=== PATIENT | male | born 1975 | race Caucasian/White ===

== ENCOUNTER 2016-07-25 21:25 | Emergency (ER) | payer MEDICAID ==
[2016-07-25 21:31] VITALS: O2SAT 96
[2016-07-25] MEDS ORDERED: FAMOTIDINE 20 MG/NACL 50 ML IV ONE (21:43)
[2016-07-25] MEDS ORDERED: NS 1,000 ML IV ONE (21:43)
[2016-07-25] MEDS ORDERED: ONDANSETRON 4 MG/2 ML VIAL IVP ONE (21:43)
[2016-07-25] MEDS ORDERED: HYDROmorphONE/DILAUDID 1 MG/ML SYR IVP ONE (21:43)
[2016-07-25] MEDS ORDERED: ONDANSETRON 4 MG/2 ML VIAL ONE (21:44)
[2016-07-25] MEDS ORDERED: FAMOTIDINE 20 MG/2 ML SDV ONE (21:45)
[2016-07-25 21:55] LABS: % IMMATURE GRANULYOCYTES 0.3 % (0.0-1.1); ABSOLUTE IMMATURE GRANULOCYTES 0.03 10^3/uL (0.00-0.10); ADD DIFF? NO; ADD MORPH? NO; ADD SCAN? NO; ATYPICAL LYMPHOCYTE FLAG 70 (0-99); FRAGMENT RBC FLAG 0 (0-99); HEMATOCRIT 46.6 % (40.0-51.0); HEMOGLOBIN 16.4 g/dL (13.7-17.5); LEFT SHIFT FLG 0 (0-99); LIPEMIA HEMOLYSIS FLAG 90 (0-99); MEAN CELL HEMOGLOBIN 33.5 pg (27.9-34.1); MEAN CELL HEMOGLOBIN CONCENTR. 35.2 g/dL (32.4-36.7); MEAN CELL VOLUME 95.1 fL (81.5-99.8); MEAN PLATELET VOLUME 8.7 fL (8.7-11.7); PLATELET CLUMPS FLAG 0 (0-99); PLATELET COUNT 299 10^3/uL (150-400)
--- NOTE | 2016-07-25 21:56 | EDPHY ---
H & P Stated Complaint: vomiting blood, abd pain Time Seen by Provider: 07/25/16 21:35 HPI/ROS: CHIEF COMPLAINT: Vomiting HISTORY OF PRESENT ILLNESS: The patient is a 40-year-old alcoholic male who comes to the emergency department complaining of vomiting with blood-tinged vomit. He has a history of alcoholic gastritis. He states that he has been drinking up until 20 minutes ago. He has not had any blood in his stool. He does have abdominal pain diffuse and nontender. No history of abdominal surgeries. No history of pancreatitis. REVIEW OF SYSTEMS: Constitutional: denies: chills, fever, recent illness, recent injury EENTM: denies: blurred vision, double vision, nose congestion Respiratory: denies: cough, shortness of breath Cardiac: denies: chest pain, irregular heart rate, lightheadedness, palpitations Gastrointestinal/Abdominal: See HPI Genitourinary: denies: dysuria, frequency, hematuria, pain Musculoskeletal: denies: joint pain, muscle pain Skin: denies: lesions, rash, jaundice, bruising Neurological: denies: headache, numbness, paresthesia, tingling, dizziness, weakness Hematologic/Lymphatic: denies: blood clots, easy bleeding, easy bruising Immunologic/allergic: denies: HIV/AIDS, transplant EXAM: GENERAL: Well-appearing, well-nourished and in no acute distress. HEAD: Atraumatic, normocephalic. EYES: Pupils equal round and reactive to light, extraocular movements intact, sclera anicteric, conjunctiva are normal. ENT: TMs normal, nares patent, oropharynx clear without exudates. Moist mucous membranes. NECK: Normal range of motion, supple without lymphadenopathy or JVD. LUNGS: Breath sounds clear to auscultation bilaterally and equal. No wheezes rales or rhonchi. HEART: Regular rate and rhythm without murmurs, rubs or gallops. ABDOMEN: The diffuse pain, no tenderness, BACK: No CVA tenderness, no spinal tenderness, step-offs or deformities EXTREMITIES: Normal range of motion, no pitting or edema. No clubbing or cyanosis. NEUROLOGICAL: Cranial nerves II through XII grossly intact. Normal speech, normal gait. 5/5 strength, normal movement in all extremities, normal sensation PSYCH: Normal mood, normal affect. SKIN: Warm, dry, normal turgor, no visible rashes or lesions. Source: Patient Exam Limitations: No limitations - Medical/Surgical History Hx Asthma: No Hx Chronic Respiratory Disease: No Hx Diabetes: No Hx Cardiac Disease: No Hx Renal Disease: No Hx Cirrhosis: No Hx Alcoholism: Yes Hx HIV/AIDS: No Hx Splenectomy or Spleen Trauma: No Other PMH: etoh/gi bleed - Family History Significant Family History: No pertinent family hx - Social History Smoking Status: Heavy smoker Alcohol Use: Heavy Drug Use: Marijuana Constitutional: Initial Vital Signs Temperature (C) 36.4 C 07/25/16 21:29 Heart Rate 106 H 07/25/16 21:29 Respiratory Rate 20 07/25/16 21: Blood Pressure 132/92 H 07/25/16 21: O2 Sat (%) 96 07/25/16 21: O2 Delivery Mode Room Air Allergies/Adverse Reactions: No Known Allergies Allergy (Verified 07/25/16 21:28) Home Medications: Medication Instructions Recorded Famotidine [Pepcid 20 MG (*)] 20 mg PO BID #10 tab 06/23/16 Vivitrol 06/23/16 Medical Decision Making ED Course/Re-evaluation: 10:30 p.m. the patient is feeling much better. He has not vomited again. He is requesting more nausea medication. I will treat him with Phenergan. He is asking to go [facility]. I will transfer him there with [facility] protocol if needed. Differential Diagnosis: Partial list of the Differential diagnosis considered include but were not limited to; alcoholic gastritis, pancreatitis, withdrawal and although unlikely based on the history and physical exam, I also considered biliary disease, kidney disease, appendicitis, ischemia. I discussed these differential diagnoses and the plan with the patient as well as the usual and expected course. The patient understands that the diagnosis is provisional and that in medicine we are not always correct and that further workup is often warranted. Usual and customary warnings were given. All of the patient's questions were answered. The patient was instructed to return to the emergency department should the symptoms at all worsen or return, otherwise to followup with the physician as we discussed. - Data Points Laboratory Results: Laboratory Results 07/25/16 21:40 07/25/16 21:40 07/25/16 21:40 WBC 8.90 10^3/uL (3.80-9.50) RBC 4.90 10^6/uL (4.40-6.38) Hgb 16.4 g/dL (13.7-17.5) Hct 46.6 % (40.0-51.0) MCV 95.1 fL (81.5-99.8) MCH 33.5 pg (27.9-34.1) MCHC 35.2 g/dL (32.4-36.7) RDW 13.0 % (11.5-15.2) Plt Count 299 10^3/uL (150-400) MPV 8.7 fL (8.7-11.7) Neut % (Auto) 43.7 % (39.3-74.2) Lymph % (Auto) 41.8 % (15.0-45.0) [place] % (Auto) 11.1 % (4.5-13.0) Eos % (Auto) 2.2 % (0.6-7.6) Baso % (Auto) 0.9 % (0.3-1.7) Nucleat RBC Rel Count 0.0 % (0.0-0.2) Absolute Neuts (auto) 3.88 10^3/uL (1.70-6.50) Absolute Lymphs (auto) 3.72 H 10^3/uL (1.00-3.00) Absolute Monos (auto) 0.99 H 10^3/uL (0.30-0.80) Absolute Eos (auto) 0.20 10^3/uL (0.03-0.40) Absolute Basos (auto) 0.08 10^3/uL (0.02-0.10) Absolute Nucleated RBC 0.00 10^3/uL (0-0.01) Immature Gran % 0.3 % (0.0-1.1) Immature Gran # 0.03 10^3/uL (0.00-0.10) Sodium 146 H mEq/L (134-144) Potassium 3.9 mEq/L (3.5-5.2) Chloride 109 mEq/L (97-110) Carbon Dioxide 22 mEq/l (22-31) Anion Gap 15 mEq/L (8-16) BUN 12 mg/dL (7-23) Creatinine 0.7 mg/dL (0.7-1.3) Estimated GFR > 60 Glucose 95 mg/dL (70-100) Calcium 8.7 mg/dL (8.5-10.4) Total Bilirubin 0.6 mg/dL (0.1-1.4) Conjugated Bilirubin 0.3 mg/dL (0.0-0.5) Unconjugated Bilirubin 0.3 mg/dL (0.0-1.1) AST 132 H IU/L (17-59) ALT 104 H IU/L (21-72) Alkaline Phosphatase 73 IU/L (38-126) Total Protein 6.7 g/dL (6.3-8.2) Albumin 4.0 g/dL (3.5-5.0) Lipase 138.0 IU/L (23-300) Medications Given: Discontinued Medications Chlordiazepoxide (Librium 25 Mg Prepack#6) 1 btl TAKEHOME EDNOW ONE Stop: 07/25/16 22:33 Last Admin: 07/25/16 22:48 Dose: 1 btl Hydromorphone HCl (Dilaudid) 0.5 mg IVP EDNOW ONE Stop: 07/25/16 21:44 Last Admin: 07/25/16 22:37 Dose: Not Given Sodium Chloride (Ns) 1,000 mls @ 0 mls/hr IV ONCE ONE PRN Reason: Wide Open Stop: 07/25/16 21:44 Last Admin: 07/25/16 21:51 Dose: 1,000 mls Famotidine/Sodium Chloride (Pepcid 20 Mg (Premix)) 50 mls @ 200 mls/hr IV EDNOW ONE Stop: 07/25/16 21:57 Last Admin: 07/25/16 21:50 Dose: 50 mls Ondansetron HCl (Zofran) 8 mg IVP EDNOW ONE Stop: 07/25/16 21:44 Last Admin: 07/25/16 21:51 Dose: 8 mg Promethazine HCl (Phenergan Injection) 12.5 mg IVP EDNOW ONE Stop: 07/25/16 22:31 Last Admin: 07/25/16 22:47 Dose: 12.5 mg Departure - Departure Disposition: Home, Routine, Self-Care Clinical Impression: Intoxication Alcoholic gastritis Qualifiers: Chronicity: acute Gastritis bleeding: with bleeding Qualifier Code: (K29.21) Alcoholic gastritis with bleeding Condition: Fair Instructions: Chlordiazepoxide/Clidinium (By mouth), Gastritis (ED), Abuse of Alcohol (ED) Referrals: NONE *PRIMARY CARE P,. [Primary Care Provider] - As per Instructions
[2016-07-25 22:07] VITALS: BP 118/99; RESP 16
[2016-07-25 22:15] LABS: ALANINE AMINOTRANSFERASE 104 IU/L (21-72); ALKALINE PHOSPHATASE 73 IU/L (38-126); ANION GAP 15 mEq/L (8-16); ASPARTATE AMINOTRANSFERASE 132 IU/L (17-59); BILIRUBIN,TOTAL 0.6 mg/dL (0.1-1.4); BILIRUBIN-CONJUGATED 0.3 mg/dL (0.0-0.5); BILIRUBIN-UNCONJUGATED 0.3 mg/dL (0.0-1.1); CALCIUM 8.7 mg/dL (8.5-10.4); CARBON DIOXIDE 22 mEq/l (22-31); CHLORIDE 109 mEq/L (97-110); CREATININE 0.7 mg/dL (0.7-1.3); GLOMERULAR FILTRATION RATE > 60; GLUCOSE 95 mg/dL (70-100); POTASSIUM 3.9 mEq/L (3.5-5.2); SODIUM 146 mEq/L (134-144); TOTAL PROTEIN 6.7 g/dL (6.3-8.2)
[2016-07-25] MEDS ORDERED: PROMETHAZINE HCL 25 MG/ML INJ IVP ONE (22:30)
[2016-07-25] MEDS ORDERED: CHLORDIAZEPOXIDE 25MG PREPK#6 BTL TAKEHOME ONE (22:32)
[2016-07-25 22:57] VITALS: PULSE 79; TEMP 97.9
== END 2016-07-25 22:56 | disposition home or self-care (01) ==
DX: K29.21 Alcoholic gastritis with bleeding (principal); F10.129 Alcohol abuse with intoxication, unspecified; F17.200 Nicotine dependence, unspecified, uncomplicated
CPT/HCPCS: 96365; J2405; J2550

== ENCOUNTER 2016-09-25 17:01 | Emergency (ER) | payer MEDICAID ==
[2016-09-25 17:22] VITALS: RESP 18
--- NOTE | 2016-09-25 18:21 | EDPHY ---
H & P Time Seen by Provider: 09/25/16 18:18 HPI/ROS: CHIEF COMPLAINT: Bloody stool HISTORY OF PRESENT ILLNESS: Patient has been drinking vodka heavily. He is scheduled to go to detox in [place] on Tuesday and his family is going to take him there. Details me that for the last 2-3 days he has been having dark stools and blood in his urine. Occasional vomiting but no hematemesis or coffee-ground emesis. No abdominal pain. No other bruising. REVIEW OF SYSTEMS: Eye: no change in vision ENT: no sore throat Cardiac: no chest pain or syncope Pulmonary: no cough or SOB Abdomen: HPI Musculoskeletal: no back pain Skin: no rash Neuro: no headache Constitutional: no fever : HPI no dysuria or flank pain A comprehensive 10 point review of systems is otherwise negative aside from elements mentioned in the history of present illness. PAST MEDICAL HISTORY: Discharge summary dated 04/30/2016 personally reviewed. Includes alcoholic gastritis and GI bleed. Social history: Recent alcohol, heavy General Appearance: Alert and conversant, cooperative. Eyes: No scleral icterus. ENT, Mouth: Normal mucous membranes. Respiratory: Normal respiratory effort, breath sounds equal, lungs are clear to auscultation. Cardiovascular: Regular rate and rhythm. Gastrointestinal: Abdomen is soft and non tender. Rectal exam shows brown yellow stool sent to lab for guaiac. Neurological: Alert and oriented x3. Normally conversant. Face symmetric, normal movement and sensation in all extremities. Skin: Warm and dry, no rashes. Musculoskeletal: No peripheral edema and no joint swelling. Psychiatric: Not agitated. Emergency Department course/MDM: Presents with alcohol intoxication and dark stools and nausea. Plan to check fecal occult blood and CBCSita for nausea. 1940: Labs reviewed, at no blood in the urine, no blood in the stool, normal hematocrit. CO2 likely from patient's self-described alcohol ingestion. No evidence of active bleeding, stable for detox. Smoking Status: Heavy smoker Constitutional: Initial Vital Signs Temperature (C) 36.3 C 09/25/16 17:15 Heart Rate 115 H 09/25/16 17:15 Respiratory Rate 18 09/25/16 17:15 Blood Pressure 100/64 09/25/16 17:15 O2 Sat (%) 90 L 09/25/16 17:15 O2 Delivery Mode Room Air O2 (L/minute) 2 Allergies/Adverse Reactions: No Known Allergies Allergy (Verified 09/25/16 17:20) Home Medications: Medication Instructions Recorded NK [No Known Home Meds] 09/25/16 Medical Decision Making Differential Diagnosis: Differential for rectal bleeding considered including but not limited to hemorrhoids, food related, upper GI bleed, lower GI bleed. - Data Points Laboratory Results: Laboratory Results 09/25/16 18:35 09/25/16 18:35 09/25/16 09/25/16 09/25/16 19:12 18:35 18:35 WBC RBC Hgb Hct MCV MCH MCHC RDW Plt Count MPV Neut % (Auto) Lymph % (Auto) [place] % (Auto) Eos % (Auto) Baso % (Auto) Nucleat RBC Rel Count Absolute Neuts (auto) Absolute Lymphs (auto) Absolute Monos (auto) Absolute Eos (auto) Absolute Basos (auto) Absolute Nucleated RBC Immature Gran % Immature Gran # PT 12.6 SEC SEC (12.0-15.0) INR 0.95 (0.83-1.16) APTT 25.0 SEC SEC (23.0-38.0) Sodium 146 mEq/L H mEq/L (134-144) Potassium 3.9 mEq/L mEq/L (3.5-5.2) Chloride 111 mEq/L H mEq/L (97-110) Carbon Dioxide 20 mEq/l L mEq/l (22-31) Anion Gap 15 mEq/L mEq/L (8-16) BUN 12 mg/dL mg/dL (7-23) Creatinine 0.9 mg/dL mg/dL (0.7-1.3) Estimated GFR > 60 Glucose 113 mg/dL H mg/dL (70-100) Calcium 9.4 mg/dL mg/dL (8.5-10.4) Urine Color YELLOW Urine Appearance CLEAR Urine pH 5.0 (5.0-7.5) Ur Specific [place] 1.010 (1.002-1.030) Urine Protein NEGATIVE (NEGATIVE) Urine Ketones NEGATIVE (NEGATIVE) Urine Blood NEGATIVE (NEGATIVE) Urine Nitrate NEGATIVE (NEGATIVE) Urine Bilirubin NEGATIVE (NEGATIVE) Urine Urobilinogen NEGATIVE EU EU (0.2-1.0) Ur Leukocyte Esterase NEGATIVE (NEGATIVE) Ur Culture Indicated? NOT INDICATED (NI) Urine Glucose NEGATIVE (NEGATIVE) Stool Occult Bld Scrn 09/25/16 09/25/16 18:35 18:29 WBC 7.95 10^3/uL 10^3/uL (3.80-9.50) RBC 4.91 10^6/uL 10^6/uL (4.40-6.38) Hgb 16.7 g/dL g/dL (13.7-17.5) Hct 48.7 % % (40.0-51.0) MCV 99.2 fL fL (81.5-99.8) MCH 34.0 pg pg (27.9-34.1) MCHC 34.3 g/dL g/dL (32.4-36.7) RDW 13.3 % % (11.5-15.2) Plt Count 298 10^3/uL 10^3/uL (150-400) MPV 9.3 fL fL (8.7-11.7) Neut % (Auto) 58.2 % % (39.3-74.2) Lymph % (Auto) 32.3 % % (15.0-45.0) [place] % (Auto) 6.9 % % (4.5-13.0) Eos % (Auto) 1.3 % % (0.6-7.6) Baso % (Auto) 0.9 % % (0.3-1.7) Nucleat RBC Rel Count 0.0 % % (0.0-0.2) Absolute Neuts (auto) 4.63 10^3/uL 10^3/uL (1.70-6.50) Absolute Lymphs (auto) 2.57 10^3/uL 10^3/uL (1.00-3.00) Absolute Monos (auto) 0.55 10^3/uL 10^3/uL (0.30-0.80) Absolute Eos (auto) 0.10 10^3/uL 10^3/uL (0.03-0.40) Absolute Basos (auto) 0.07 10^3/uL 10^3/uL (0.02-0.10) Absolute Nucleated RBC 0.00 10^3/uL 10^3/uL (0-0.01) Immature Gran % 0.4 % % (0.0-1.1) Immature Gran # 0.03 10^3/uL 10^3/uL (0.00-0.10) PT INR APTT Sodium Potassium Chloride Carbon Dioxide Anion Gap BUN Creatinine Estimated GFR Glucose Calcium Urine Color Urine Appearance Urine pH Ur Specific [place] Urine Protein Urine Ketones Urine Blood Urine Nitrate Urine Bilirubin Urine Urobilinogen Ur Leukocyte Esterase Ur Culture Indicated? Urine Glucose Stool Occult Bld Scrn NEGATIVE (NEGATIVE) Medications Given: Discontinued Medications Sodium Chloride (Ns) 1,000 mls @ 0 mls/hr IV ONCE ONE PRN Reason: Wide Open Stop: 09/25/16 18:28 Last Admin: 09/25/16 18:35 Dose: 1,000 mls Sodium Chloride (Ns) 1,000 mls @ 0 mls/hr IV ONCE ONE PRN Reason: Wide Open Stop: 09/25/16 18:28 Last Admin: 09/25/16 18:41 Dose: 1,000 mls Ondansetron HCl (Zofran) 4 mg IVP EDNOW ONE Stop: 09/25/16 18:28 Last Admin: 09/25/16 18:41 Dose: 4 mg Departure - Departure Disposition: Home, Routine, Self-Care Clinical Impression: Alcoholic intoxication Qualifiers: Complication of substance-induced condition: uncomplicated Qualified Code(s): F10.120 - Alcohol abuse with intoxication, uncomplicated Condition: Good Instructions: Alcohol Intoxication (ED) Referrals: [facility],. [Clinic] - As per Instructions
[2016-09-25] MEDS ORDERED: NS 1,000 ML IV ONE ×2 (18:27)
[2016-09-25] MEDS ORDERED: ONDANSETRON 4 MG/2 ML VIAL IVP ONE (18:27)
[2016-09-25 18:47] LABS: % IMMATURE GRANULYOCYTES 0.4 % (0.0-1.1); ABSOLUTE IMMATURE GRANULOCYTES 0.03 10^3/uL (0.00-0.10); ADD DIFF? NO; ADD MORPH? NO; ADD SCAN? NO; ATYPICAL LYMPHOCYTE FLAG 10 (0-99); FRAGMENT RBC FLAG 0 (0-99); HEMATOCRIT 48.7 % (40.0-51.0); HEMOGLOBIN 16.7 g/dL (13.7-17.5); LEFT SHIFT FLG 0 (0-99); LIPEMIA HEMOLYSIS FLAG 90 (0-99); MEAN CELL HEMOGLOBIN CONCENTR. 34.3 g/dL (32.4-36.7); MEAN CELL VOLUME 99.2 fL (81.5-99.8); MEAN PLATELET VOLUME 9.3 fL (8.7-11.7); PLATELET CLUMPS FLAG 0 (0-99); PLATELET COUNT 298 10^3/uL (150-400); RED BLOOD CELL COUNT 4.91 10^6/uL (4.40-6.38); RED CELL DISTRIBUTION WIDTH 13.3 % (11.5-15.2)
[2016-09-25 19:01] LABS: INR 0.95 (0.83-1.16); PROTIME(PATIENT) 12.6 SEC (12.0-15.0)
[2016-09-25 19:04] LABS: ANION GAP 15 mEq/L (8-16); CALCIUM 9.4 mg/dL (8.5-10.4); CARBON DIOXIDE 20 mEq/l (22-31); CHLORIDE 111 mEq/L (97-110); CREATININE 0.9 mg/dL (0.7-1.3); GLOMERULAR FILTRATION RATE > 60; GLUCOSE 113 mg/dL (70-100); POTASSIUM 3.9 mEq/L (3.5-5.2); SODIUM 146 mEq/L (134-144)
[2016-09-25 19:22] LABS: COLOR YELLOW; LEUKOCYTE ESTERASE,URINE NEGATIVE (NEGATIVE); NITRITE,URINE NEGATIVE (NEGATIVE)
[2016-09-25] MEDS ORDERED: CHLORDIAZEPOXIDE 25MG PREPK#6 BTL TAKEHOME ONE ×2 (19:56→19:58)
[2016-09-25 20:06] VITALS: BP 118/67; PULSE 102; TEMP 98.4; O2SAT 94
== END 2016-09-25 20:04 | disposition home or self-care (01) ==
DX: F10.120 Alcohol abuse with intoxication, uncomplicated (principal); F17.200 Nicotine dependence, unspecified, uncomplicated
CPT/HCPCS: 96374; J2405

== ENCOUNTER 2016-10-14 19:27 | Emergency (ER) | payer MEDICAID, OTHER ==
[2016-10-14] MEDS ORDERED: NS 1,000 ML IV ONE ×2 (19:44→21:35)
--- NOTE | 2016-10-14 19:48 | EDPHY ---
H & P Stated Complaint: "peeing blood" Time Seen by Provider: 10/14/16 19:40 HPI/ROS: CHIEF COMPLAINT: Lower abdominal pain, urinating blood blood HISTORY OF PRESENT ILLNESS: Patient reports 1 day history of bright red blood in his urine. He says he is going to the bathroom once today and it was all blood. Associates this with some moderate to severe suprapubic abdominal pain. Pain is been constant all day. It is worse with palpation of Valsalva. Does not radiate. It is worse with any kind of movement. Minimal improvement rest. No flank pain. No fever. No nausea or vomiting. No upper abdominal pain. No trauma or injury to the abdomen. No purulence or discharge from the urethral meatus. No pain in the scrotum or testicles. Admits to alcohol abuse of at least a half a gallon a day of liquor. No previous history of hematuria. No other associated complaints or modifying factors. REVIEW OF SYSTEMS: Ten systems reviewed and are negative unless otherwise noted in the HPI EXAMINATION: General Appearance: Alert, no distress Head: normocephalic, atraumatic Eyes: Pupils equal and round, no conjunctival pallor or injection ENT, Mouth: Mucous membranes moist. Uvula midline. No erythema or edema Neck: Normal inspection, supple, non-tender Respiratory: Mild rhonchi. No crackles or consolidation. No diminishment. No retractions. Cardiovascular: Regular rate and rhythm. No murmur. Pulses intact distally. Gastrointestinal: Abdomen is soft. Mild tenderness in the suprapubic region. No tympany. No rigidity. No guarding. No CVA tenderness. Back: non-tender, no bony abnormalities Neurological: A&O, nonfocal, normal gait Skin: Warm and dry, no rash Extremities: Nontender, no pedal edema Psychiatric: Mood and affect normal DIFFERENTIAL DIAGNOSES: Including but not limited to hematuria, cystitis, urethritis, urinary tract infection MDM: 7:45 p.m. Lower abdominal/suprapubic pain with reports of gross hematuria today. No flank pain. No fever chills. No nausea or vomiting. No upper abdominal pain. No use of blood thinners. Patient is alcoholic drinks half a gal a day of various drinks. He is in no acute distress vital signs stable. 8:15 p.m. Laboratory studies are all within normal limits. Urinalysis is pending. Given the patient's suprapubic pain all order a CT scan noncontrast to rule out bladder calculi. 8:45 p.m. Urinalysis is also unremarkable. 9:05 p.m. Notified by radiologist Dr. Flores. No acute findings on the CT scan of the abdomen and pelvis. I have re-evaluated the patient. He was sleeping in his bed with stable vital signs. Patient does appear to be intoxicated. His significant other contacted the RN taking care of the patient and expressed that they wished the patient to be detoxed. We will provide a cab to take him to the [facility] upon discharge from the emergency department. He is comfortable with this plan and discharged in stable condition. ED Precautions: Worsening pain. Fever. Bloody stools. Bloody emesis. Constipation or diarrhea. SUPERVISION: This patient was independently evaluated without direct examination by the attending physician. Case was discussed with attending physician. Source: Patient Exam Limitations: No limitations - Personal History Current Tetanus/Diphtheria Vaccine: Unsure Current Tetanus Diphtheria and Acellular Pertussis (TDAP): Unsure - Medical/Surgical History Hx Asthma: No Hx Chronic Respiratory Disease: No Hx Diabetes: No Hx Cardiac Disease: No Hx Renal Disease: No Hx Cirrhosis: No Hx Alcoholism: Yes Hx HIV/AIDS: No Hx Splenectomy or Spleen Trauma: No Other PMH: etoh/gi bleed - Social History Smoking Status: Heavy smoker Constitutional: Initial Vital Signs Temperature (C) 97.3 F 10/14/16 19:32 Heart Rate 82 10/14/16 19:32 Respiratory Rate 16 10/14/16 19:32 Blood Pressure 135/83 H 10/14/16 19:32 O2 Sat (%) 94 10/14/16 19:32 O2 Delivery Mode Nasal Cannula O2 (L/minute) 3 Allergies/Adverse Reactions: No Known Allergies Allergy (Verified 10/14/16 19:31) Home Medications: Medication Instructions Recorded NK [No Known Home Meds] 09/25/16 Medical Decision Making - Data Points Laboratory Results: Laboratory Results 10/14/16 19:50 10/14/16 19:50 10/14/16 10/14/16 10/14/16 20:18 19:50 19:50 WBC RBC Hgb Hct MCV MCH MCHC RDW Plt Count MPV Neut % (Auto) Lymph % (Auto) [place] % (Auto) Eos % (Auto) Baso % (Auto) Nucleat RBC Rel Count Absolute Neuts (auto) Absolute Lymphs (auto) Absolute Monos (auto) Absolute Eos (auto) Absolute Basos (auto) Absolute Nucleated RBC Immature Gran % Immature Gran # PT 12.4 SEC SEC (12.0-15.0) INR 0.93 (0.83-1.16) APTT 28.0 SEC SEC (23.0-38.0) Sodium 147 mEq/L H mEq/L (134-144) Potassium 4.3 mEq/L mEq/L (3.5-5.2) Chloride 110 mEq/L mEq/L (97-110) Carbon Dioxide 23 mEq/l mEq/l (22-31) Anion Gap 14 mEq/L mEq/L (8-16) BUN 11 mg/dL mg/dL (7-23) Creatinine 0.6 mg/dL L mg/dL (0.7-1.3) Estimated GFR > 60 Glucose 94 mg/dL mg/dL (70-100) Calcium 9.0 mg/dL mg/dL (8.5-10.4) Lipase 218.0 IU/L IU/L (23-300) Urine Color PALE YELLOW Urine Appearance CLEAR Urine pH 6.0 (5.0-7.5) Ur Specific [place] 1.005 (1.002-1.030) Urine Protein NEGATIVE (NEGATIVE) Urine Ketones NEGATIVE (NEGATIVE) Urine Blood NEGATIVE (NEGATIVE) Urine Nitrate NEGATIVE (NEGATIVE) Urine Bilirubin NEGATIVE (NEGATIVE) Urine Urobilinogen NEGATIVE EU EU (0.2-1.0) Ur Leukocyte Esterase NEGATIVE (NEGATIVE) Ur Culture Indicated? NOT INDICATED (NI) Urine Glucose NEGATIVE (NEGATIVE) 10/14/16 19:50 WBC 10.09 10^3/uL H 10^3/uL (3.80-9.50) RBC 4.66 10^6/uL 10^6/uL (4.40-6.38) Hgb 16.0 g/dL g/dL (13.7-17.5) Hct 46.3 % % (40.0-51.0) MCV 99.4 fL fL (81.5-99.8) MCH 34.3 pg H pg (27.9-34.1) MCHC 34.6 g/dL g/dL (32.4-36.7) RDW 12.9 % % (11.5-15.2) Plt Count 313 10^3/uL 10^3/uL (150-400) MPV 9.0 fL fL (8.7-11.7) Neut % (Auto) 54.9 % % (39.3-74.2) Lymph % (Auto) 32.5 % % (15.0-45.0) [place] % (Auto) 7.8 % % (4.5-13.0) Eos % (Auto) 3.1 % % (0.6-7.6) Baso % (Auto) 1.3 % % (0.3-1.7) Nucleat RBC Rel Count 0.0 % % (0.0-0.2) Absolute Neuts (auto) 5.54 10^3/uL 10^3/uL (1.70-6.50) Absolute Lymphs (auto) 3.28 10^3/uL H 10^3/uL (1.00-3.00) Absolute Monos (auto) 0.79 10^3/uL 10^3/uL (0.30-0.80) Absolute Eos (auto) 0.31 10^3/uL 10^3/uL (0.03-0.40) Absolute Basos (auto) 0.13 10^3/uL H 10^3/uL (0.02-0.10) Absolute Nucleated RBC 0.00 10^3/uL 10^3/uL (0-0.01) Immature Gran % 0.4 % % (0.0-1.1) Immature Gran # 0.04 10^3/uL 10^3/uL (0.00-0.10) PT INR APTT Sodium Potassium Chloride Carbon Dioxide Anion Gap BUN Creatinine Estimated GFR Glucose Calcium Lipase Urine Color Urine Appearance Urine pH Ur Specific [place] Urine Protein Urine Ketones Urine Blood Urine Nitrate Urine Bilirubin Urine Urobilinogen Ur Leukocyte Esterase Ur Culture Indicated? Urine Glucose Medications Given: Discontinued Medications Sodium Chloride (Ns) 1,000 mls @ 0 mls/hr IV ONCE ONE PRN Reason: Wide Open Stop: 10/14/16 19:45 Last Admin: 10/14/16 19:57 Dose: 1,000 mls Departure - Departure Disposition: Home, Routine, Self-Care Clinical Impression: Abdominal pain Qualifiers: Abdominal location: lower abdomen, unspecified Qualified Code(s): R10.30 - Lower abdominal pain, unspecified Acute alcohol intoxication Qualifiers: Complication of substance-induced condition: uncomplicated Qualified Code(s): F10.120 - Alcohol abuse with intoxication, uncomplicated Condition: Good Instructions: Chlordiazepoxide (By mouth), Acute Abdominal Pain (ED) Additional Instructions: Follow-up with primary care physician and Urology for further care. Return to ER for any flank pain or difficulty urinating Referrals: NONE *PRIMARY CARE P,. [Primary Care Provider] - As per Instructions [facility],. [Clinic] - As per Instructions Ramone Tamayo MD [Medical Doctor] - As per Instructions
[2016-10-14 20:06] LABS: % IMMATURE GRANULYOCYTES 0.4 % (0.0-1.1); ABSOLUTE IMMATURE GRANULOCYTES 0.04 10^3/uL (0.00-0.10); ADD DIFF? NO; ADD MORPH? NO; ADD SCAN? NO; ATYPICAL LYMPHOCYTE FLAG 0 (0-99); FRAGMENT RBC FLAG 0 (0-99); HEMATOCRIT 46.3 % (40.0-51.0); LEFT SHIFT FLG 0 (0-99); LIPEMIA HEMOLYSIS FLAG 90 (0-99); MEAN CELL HEMOGLOBIN 34.3 pg (27.9-34.1); MEAN CELL HEMOGLOBIN CONCENTR. 34.6 g/dL (32.4-36.7); MEAN CELL VOLUME 99.4 fL (81.5-99.8); PLATELET CLUMPS FLAG 0 (0-99); PLATELET COUNT 313 10^3/uL (150-400); RED BLOOD CELL COUNT 4.66 10^6/uL (4.40-6.38); RED CELL DISTRIBUTION WIDTH 12.9 % (11.5-15.2)
[2016-10-14 20:16] LABS: INR 0.93 (0.83-1.16); PROTIME(PATIENT) 12.4 SEC (12.0-15.0)
[2016-10-14 20:19] LABS: ANION GAP 14 mEq/L (8-16); CARBON DIOXIDE 23 mEq/l (22-31); CHLORIDE 110 mEq/L (97-110); CREATININE 0.6 mg/dL (0.7-1.3); GLOMERULAR FILTRATION RATE > 60; GLUCOSE 94 mg/dL (70-100); POTASSIUM 4.3 mEq/L (3.5-5.2); SODIUM 147 mEq/L (134-144)
[2016-10-14 20:40] LABS: COLOR PALE YELLOW; LEUKOCYTE ESTERASE,URINE NEGATIVE (NEGATIVE); NITRITE,URINE NEGATIVE (NEGATIVE)
[2016-10-14 20:44] VITALS: RESP 20
[2016-10-14] MEDS ORDERED: CHLORDIAZEPOXIDE 25MG PREPK#6 BTL TAKEHOME ONE ×2 (21:15→23:43)
[2016-10-15 00:02] VITALS: BP 123/86; PULSE 89; TEMP 98.2; O2SAT 95
== END 2016-10-15 00:02 | disposition home or self-care (01) ==
DX: R10.30 Lower abdominal pain, unspecified (principal); F10.120 Alcohol abuse with intoxication, uncomplicated; F17.200 Nicotine dependence, unspecified, uncomplicated

== ENCOUNTER 2016-10-17 07:08 | Emergency (ER) | payer MEDICAID ==
[2016-10-17 07:15] VITALS: RESP 18; TEMP 98.6; O2SAT 95
--- NOTE | 2016-10-17 07:20 | EDPHY ---
HPI/HX/ROS/PE/MDM Narrative: CHIEF COMPLAINT: HPI: This patient is a 41 y/o male with history of alcoholism complaining of upper respiratory symptoms onset __. This is his 7th visit in the last six months. He was seen three days ago for hematuria, and was ultimately discharged to the [facility] for intoxication. Limited CT scan of lower chest from 10/14/16 showed mild patchy consolidation in the left lower lobe suggesting probability of previous pneumonia, but no pleural effusion. REVIEW OF SYSTEMS: Aside from elements discussed in the HPI, a comprehensive 10- point review of systems was reviewed and is negative. PMH: Alcohol abuse. I reviewed previous medical records including ED visit from 10/14/16 and admission from 04/25/16. SOCIAL HISTORY: Heavy smoker, heavy alcohol abuse. PHYSICAL EXAM: General:Patient is alert, in no acute distress. ENT:Eyes are normal to inspection. ENT inspection normal. Neck: Normal inspection. Full range of motion. Respiratory:No respiratory distress. Breath sounds normal bilaterally. Cardiovascular: Regular rate and rhythm. Strong peripheral pulses. Normal cap refill. Abdomen:The abdomen is nontender to palpation. There are no peritoneal signs. There are normal bowel sounds. Back: Normal to inspection. No tenderness to palpation. Skin: Normal color. No rash. Warm and dry. Extremities: Normal appearance. Full range of motion. Neuro: Oriented x3. Normal motor function. Normal sensory function. Findings: ED Course: Flu swab and chest x-ray ordered. Flu swab negative. Chest x-ray - Data Points Imaging: I viewed and interpreted images myself Laboratory Results: 10/17/16 07:32 Influenza Typ A,B (DFA) NEGATIVE FOR FLU (NEGATIVE) General Time Seen by Provider: 10/17/16 07:16 Initial Vital Signs: Initial Vital Signs Temperature (C) 37 C 10/17/16 07:11 Heart Rate 108 H 10/17/16 07:11 Respiratory Rate 18 10/17/16 07:11 Blood Pressure 104/93 H 10/17/16 07:11 O2 Sat (%) 95 10/17/16 07:11 O2 Delivery Mode Room Air Allergies/Adverse Reactions: No Known Allergies Allergy (Verified 10/17/16 07:11) Home Medications: Medication Instructions Recorded NK [No Known Home Meds] 09/25/16 Departure - Departure Referrals: NONE *PRIMARY CARE P,. [Primary Care Provider] - As per Instructions [facility],. [Clinic] - As per Instructions Report Scribed for: Rubens Mtz Report Scribed by: Awa Reyna Date of Report: 10/17/16 Time of Report: 07:19 Physician Review and Approval Statement: Portions of this note were transcribed by an ED scribe. I personally performed the history, physical exam, and medical decision making; and confirm the accuracy of the information in the transcribed note.
[2016-10-17] MEDS ORDERED: NS 1,000 ML IV ONE (08:14)
[2016-10-17] MEDS ORDERED: IPRATROPIUM/ALBUTEROL 3 ML DEYVIAL IH ONE (08:14)
[2016-10-17] MEDS ORDERED: IBUPROFEN 600 MG TAB PO ONE (08:15)
--- NOTE | 2016-10-17 08:39 | CPEKG ---
Heart Rate: 97 RR Interval: 619 P-R Interval: 132 QRSD Interval: 84 QT Interval: 348 QTC Interval: 442 P [place]: 58 QRS [place]: 59 T Wave [place]: 43 EKG Severity - NORMAL ECG - EKG Impression: SINUS RHYTHM Electronically Signed By: Rubens Mtz 17-Oct-2016 14:46:47
[2016-10-17 08:51] LABS: % IMMATURE GRANULYOCYTES 0.5 % (0.0-1.1); ABSOLUTE IMMATURE GRANULOCYTES 0.05 10^3/uL (0.00-0.10); ADD DIFF? NO; ADD MORPH? NO; ADD SCAN? NO; ATYPICAL LYMPHOCYTE FLAG 20 (0-99); FRAGMENT RBC FLAG 0 (0-99); HEMATOCRIT 43.1 % (40.0-51.0); HEMOGLOBIN 15.2 g/dL (13.7-17.5); LEFT SHIFT FLG 10 (0-99); LIPEMIA HEMOLYSIS FLAG 90 (0-99); MEAN CELL HEMOGLOBIN 33.5 pg (27.9-34.1); MEAN CELL HEMOGLOBIN CONCENTR. 35.3 g/dL (32.4-36.7); MEAN CELL VOLUME 94.9 fL (81.5-99.8); MEAN PLATELET VOLUME 9.1 fL (8.7-11.7); PLATELET CLUMPS FLAG 10 (0-99); PLATELET COUNT 257 10^3/uL (150-400); RED BLOOD CELL COUNT 4.54 10^6/uL (4.40-6.38); RED CELL DISTRIBUTION WIDTH 12.3 % (11.5-15.2)
[2016-10-17 09:01] LABS: ANION GAP 8 mEq/L (8-16); CALCIUM 9.1 mg/dL (8.5-10.4); CARBON DIOXIDE 24 mEq/l (22-31); CHLORIDE 104 mEq/L (97-110); CREATININE 0.7 mg/dL (0.7-1.3); GLOMERULAR FILTRATION RATE > 60; GLUCOSE 90 mg/dL (70-100); POTASSIUM 3.8 mEq/L (3.5-5.2); SODIUM 136 mEq/L (134-144)
--- NOTE | 2016-10-17 09:01 | EDPHY ---
H & P Stated Complaint: Flu like sxs x 1 day;productive cough;just got out of detox Time Seen by Provider: 10/17/16 07:16 HPI/ROS: CHIEF COMPLAINT: Flu-like symptoms HISTORY OF PRESENT ILLNESS: Patient complains of cough, congestion, body aches , right ear pain and congestion, fevers, sweats, painful cough. Symptoms all started abruptly yesterday afternoon. Mild to moderate. Worse with exertion. Worse when lying supine. Minimal improvement with sitting up. No actual chest pain at rest, but his cough is painful and productive. He has some shortness of breath with. Some vomiting. No abdominal pain. Hematuria has resolved from recent visit. No trauma. No injury. Patient says that he is homeless and has no medications. No other associated complaints or modifying factors. He is a smoker and admits to alcohol abuse. REVIEW OF SYSTEMS: Ten systems reviewed and are negative unless otherwise noted in the HPI PERTINENT MEDICAL HISTORY: Noncontributory EXAMINATION General Appearance: Alert, no distress. Unkempt. Head: normocephalic, atraumatic Eyes: Pupils equal and round, no conjunctival pallor or injection ENT, Mouth: Mucous membranes moist. Uvula midline. No erythema. Right TM is erythematous and bulging. No perforation. Left EAC and TM are clear. Neck: Normal inspection, supple, non-tender. Painless range of motion all planes. No meningismus or rigidity. Respiratory: Scattered rhonchi. No crackles. No consolidation. No diminishment. No retractions. Cardiovascular: Regular rate and rhythm. No murmur. Pulses intact distally. Gastrointestinal: Abdomen is soft and nontender. No tympany rigidity. No CVA tenderness. Back: non-tender, no bony abnormalities Neurological: A&O, nonfocal, normal gait. GCS 15. Skin: Warm and dry. No petechiae or purpura. Extremities: Nontender, no pedal edema Psychiatric: Mood and affect normal DIFFERENTIAL DIAGNOSES: Including but not limited to influenza, pneumonia, bronchitis, upper respiratory infection, lower respiratory infection, viral illness MDM: 8:15 a.m. Flu-like symptoms with painful cough that started yesterday afternoon. Patient' s examination is more consistent with influenza than pneumonia. His influenza swab is negative but I suspect this may be a false negative. I am obtaining laboratory studies, providing IV fluid resuscitation, and administering DuoNeb treatment. 9:15 a.m. Laboratory studies reveal a mild leukocytosis. No shift in the differential. Troponin is negative. Chemistries unremarkable. His vital signs remained stable. He was mildly tachycardic at time of arrival, after 1 L fluid he is now within normal limits on all of his vital signs. I suspect this is either influenza or community-acquired pneumonia. He is in no acute distress and does not need admission to the hospital for treatment. We will discharge him home with Zithromax as he is a smoker and to cover for the possibility of pneumonia. First dose was given here. We also provided the remaining 4 pills from the pharmacy. We have also provided him with an albuterol inhaler. He is comfortable this plan. He will follow up with [facility] for further care. Return to the ER for worsening symptoms. He is discharged home stable condition. SUPERVISION: This patient was independently evaluated without direct examination by the attending physician. Case was discussed with attending physician. Case discussed with Dr. Mtz Source: Patient, Old records Exam Limitations: No limitations - Personal History Current Tetanus Diphtheria and Acellular Pertussis (TDAP): Unsure - Medical/Surgical History Hx Asthma: No Hx Chronic Respiratory Disease: No Hx Diabetes: No Hx Cardiac Disease: No Hx Renal Disease: No Hx Cirrhosis: No Hx Alcoholism: Yes Hx HIV/AIDS: No Hx Splenectomy or Spleen Trauma: No Other PMH: etoh/gi bleed - Social History Smoking Status: Heavy smoker Constitutional: Initial Vital Signs Temperature (C) 98.6 F 10/17/16 07:11 Heart Rate 108 H 10/17/16 07:11 Respiratory Rate 18 10/17/16 07:11 Blood Pressure 104/93 H 10/17/16 07:11 O2 Sat (%) 95 10/17/16 07:11 O2 Delivery Mode Room Air Allergies/Adverse Reactions: No Known Allergies Allergy (Verified 10/17/16 07:11) Home Medications: Medication Instructions Recorded Azithromycin [Zithromax] 250 mg PO DAILY #4 tab 10/17/16 Medical Decision Making - Diagnostics Imaging Results: Imaging Impressions Chest X-Ray 10/17/16 07:21 Impression: Persistent focus of consolidation anterior aspect left lower lobe. Continued follow-up is recommended after treatment to confirm resolution. - Data Points Laboratory Results: Laboratory Results 10/17/16 08:30 10/17/16 08:30 10/17/16 10/17/16 10/17/16 08:30 08:30 07:32 WBC 10.97 10^3/uL H 10^3/uL (3.80-9.50) RBC 4.54 10^6/uL 10^6/uL (4.40-6.38) Hgb 15.2 g/dL g/dL (13.7-17.5) Hct 43.1 % % (40.0-51.0) MCV 94.9 fL fL (81.5-99.8) MCH 33.5 pg pg (27.9-34.1) MCHC 35.3 g/dL g/dL (32.4-36.7) RDW 12.3 % % (11.5-15.2) Plt Count 257 10^3/uL D 10^3/uL (150-400) MPV 9.1 fL fL (8.7-11.7) Neut % (Auto) 76.2 % H % (39.3-74.2) Lymph % (Auto) 8.9 % L % (15.0-45.0) Jenkins % (Auto) 13.5 % H % (4.5-13.0) Eos % (Auto) 0.5 % L % (0.6-7.6) Baso % (Auto) 0.4 % % (0.3-1.7) Nucleat RBC Rel Count 0.0 % % (0.0-0.2) Absolute Neuts (auto) 8.36 10^3/uL H 10^3/uL (1.70-6.50) Absolute Lymphs (auto) 0.98 10^3/uL L 10^3/uL (1.00-3.00) Absolute Monos (auto) 1.48 10^3/uL H 10^3/uL (0.30-0.80) Absolute Eos (auto) 0.06 10^3/uL 10^3/uL (0.03-0.40) Absolute Basos (auto) 0.04 10^3/uL 10^3/uL (0.02-0.10) Absolute Nucleated RBC 0.00 10^3/uL 10^3/uL (0-0.01) Immature Gran % 0.5 % % (0.0-1.1) Immature Gran # 0.05 10^3/uL 10^3/uL (0.00-0.10) Sodium 136 mEq/L mEq/L (134-144) Potassium 3.8 mEq/L mEq/L (3.5-5.2) Chloride 104 mEq/L mEq/L (97-110) Carbon Dioxide 24 mEq/l mEq/l (22-31) Anion Gap 8 mEq/L mEq/L (8-16) BUN 14 mg/dL mg/dL (7-23) Creatinine 0.7 mg/dL mg/dL (0.7-1.3) Estimated GFR > 60 Glucose 90 mg/dL mg/dL (70-100) Calcium 9.1 mg/dL mg/dL (8.5-10.4) Troponin I < 0.012 ng/mL ng/mL (0-0.034) Influenza Typ A,B (DFA) NEGATIVE FOR FLU (NEGATIVE) Medications Given: Discontinued Medications Albuterol Sulfate (Proventil Inh Prepack) 1 mdi TAKEHOME EDNOW ONE Stop: 10/17/16 09:17 Last Admin: 10/17/16 09:31 Dose: 1 mdi Albuterol/Ipratropium (Duoneb) 3 ml IH EDNOW ONE Stop: 10/17/16 08:15 Last Admin: 10/17/16 08:31 Dose: 3 ml Azithromycin (Zithromax) 500 mg PO EDNOW ONE PRN Reason: Protocol Stop: 10/17/16 09:38 Last Admin: 10/17/16 09:41 Dose: 500 mg Sodium Chloride (Ns) 1,000 mls @ 0 mls/hr IV ONCE ONE PRN Reason: Wide Open Stop: 10/17/16 08:15 Last Admin: 10/17/16 08:31 Dose: 1,000 mls Ibuprofen (Motrin) 600 mg PO ONCE ONE Stop: 10/17/16 08:16 Last Admin: 10/17/16 08:31 Dose: 600 mg Departure - Departure Disposition: Home, Routine, Self-Care Clinical Impression: CAP (community acquired pneumonia) Condition: Good Instructions: Albuterol (By breathing), Pneumonia (ED) Additional Instructions: Zithromax will be provided upon discharge home. Next dose will be needed tomorrow. One pill daily for the next 4 days starting tomorrow. Albuterol inhaler as needed as discussed. Follow up with [facility] Referrals: NONE *PRIMARY CARE P,. [Primary Care Provider] - As per Instructions [facility],. [Clinic] - As per Instructions Prescriptions: Azithromycin [Zithromax] 250 mg PO DAILY #4 tab
[2016-10-17 09:12] LABS: TROPONIN I < 0.012 ng/mL (0-0.034)
[2016-10-17] MEDS ORDERED: ALBUTEROL INH PREPACK MDI TAKEHOME ONE (09:16)
[2016-10-17 09:27] VITALS: BP 115/67; PULSE 98
[2016-10-17] MEDS ORDERED: AZITHROMYCIN 250 MG TAB PO ONE (09:37)
[2016-10-18] MEDS ORDERED: AZITHROMYCIN 250 MG TAB PO SCH
== END 2016-10-17 09:41 | disposition home or self-care (01) ==
DX: J18.9 Pneumonia, unspecified organism (principal); F17.200 Nicotine dependence, unspecified, uncomplicated

== ENCOUNTER 2016-11-29 07:49 | Emergency (ER) | payer MEDICAID ==
[2016-11-29] MEDS ORDERED: IBUPROFEN 600 MG TAB PO ONE (09:10)
--- NOTE | 2016-11-29 17:10 | EDPHY ---
H & P Time Seen by Provider: 11/29/16 09:00 HPI/ROS: CHIEF COMPLAINT: Blisters on feet HISTORY OF PRESENT ILLNESS: This is a 41-year-old male presenting to the emergency department complaining of blisters on feet times 2-3 days. Patient states he is homeless he does a lot of walking, complaining today of pain bottoms of feet with blisters. Denies any fever nausea vomiting or diarrhea. No other complaints REVIEW OF SYSTEMS: Constitutional: No fever, no chills. Eyes: No blurred vision ENT: No sore throat. Cardiovascular: No chest pain, no palpitations. Respiratory: No cough, no shortness of breath. Gastrointestinal: No abdominal pain, no vomiting. Musculoskeletal: No back pain. bilateral feet pain with blisters Skin: No rashes. Neurological: No headache. Smoking Status: Heavy smoker Physical Exam: General Appearance: Alert and no distress. Eyes: Pupils equal and round no injection. Respiratory: Chest is nontender, lungs are clear to auscultation. Cardiac: regular rate and rhythm Gastrointestinal: Abdomen is soft and nontender, no masses. Musculoskeletal: Neck is supple and nontender. Extremities: Few blisters noted in between toes on bilateral feet, nontender on palpation, no cellulitis noted. full range of motion. Positive CMS intact Skin: No rashes. Few small blisters noted in between toes Allergies/Adverse Reactions: No Known Allergies Allergy (Verified 10/17/16 07:11) Home Medications: Medication Instructions Recorded Azithromycin [Zithromax] 250 mg PO DAILY #4 tab 10/17/16 Medical Decision Making ED Course/Re-evaluation: Discussed proper foot care with patient, clean dry socks on a daily basis, foot powder is beneficial to help decrease moisture in between toes. can also wear sandals, this can decrease moisture to the feet. Discussed keeping feet clean and dry. Discharge home---> stable, discussed discharge instructions with patient. Vital signs at discharge 142/80 heart rate of 92 respiratory rate 16 temp 36.3 pulse ox 96% Differential Diagnosis: Other differential diagnosis considered but not limited to athlete's foot , cellulitis, and necrotizing fasciitis Departure - Departure Disposition: Home, Routine, Self-Care Clinical Impression: Blister of skin AND/OR mucosa Condition: Good Instructions: Arthralgia (ED) Referrals: NONE *PRIMARY CARE P,. [Primary Care Provider] - As per Instructions [facility],. [Clinic] - As per Instructions
== END 2016-11-29 09:20 | disposition home or self-care (01) ==
DX: R23.8 Other skin changes (principal); F17.200 Nicotine dependence, unspecified, uncomplicated

== ENCOUNTER 2018-09-01 11:03 | Emergency (ER) | payer MEDICAID ==
[2018-09-01] MEDS ORDERED: NS 1,000 ML IV ONE ×2 (11:40→11:44)
[2018-09-01] MEDS ORDERED: ONDANSETRON 4 MG/2 ML VIAL IVP ONE (11:41)
[2018-09-01] MEDS ORDERED: PANTOPRAZOLE SODIUM 40 MG VIAL IVP ONE (11:44)
[2018-09-01] MEDS ORDERED: HYOSCYAMINE SULFATE 0.125 MG TAB PO ONE (11:44)
[2018-09-01] MEDS ORDERED: LIDOCAINE 2% VISCOUS 15 ML UDCUP PO ONE (11:44)
[2018-09-01] MEDS ORDERED: MAG HYDROX/AL HYDROX/SIMETH 30 ML UDCUP PO ONE (11:44)
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
[2018-09-01] MEDS ORDERED: LORazepam 2 MG/ML INJ IVP ONE (11:51)
[2018-09-01 12:01] LABS: PLATELET COUNT 391 10^3/uL (150-400)
[2018-09-01] MEDS ORDERED: IOPAMIDOL (ISOVUE-300) 100 ML BTL ONE (12:02)
[2018-09-01] MEDS ORDERED: LIDOCAINE 2% VISCOUS 15 ML UDCUP ONE (12:08)
[2018-09-01] MEDS ORDERED: CHLORDIAZEPOXIDE 25MG PREPK#6 BTL TAKEHOME ONE (12:56)
[2018-09-01] MEDS ORDERED: chlordiazePOXIDE 25 MG CAP PO ONE (12:56)
[2018-09-01 13:13] VITALS: BP 155/80
== END 2018-09-01 13:21 | disposition home or self-care (01) ==
DX: F10.920 Alcohol use, unspecified with intoxication, uncomplicated (principal); K29.21 Alcoholic gastritis with bleeding; K76.0 Fatty (change of) liver, not elsewhere classified; R03.0 Elevated blood-pressure reading, without diagnosis of hypertension; R00.0 Tachycardia, unspecified; Z59.0 Homelessness
CPT/HCPCS: 82435-PO; 82565-PO; 82947-PO; 84132-PO; 84295-PO; 84520-PO; 85014-ER; 96374; G0480; J2060; J2405; Q9967

== ENCOUNTER 2018-09-26 22:17 | Inpatient (IN) | payer MEDICAID ==
--- NOTE | 2018-09-26 22:37 | EDPHY ---
H & P Smoking Status: Heavy smoker Time Seen by Provider: 09/26/18 22:24 HPI/ROS: Chief complaint. Vomiting, blood in vomit HPI. 43-year-old male presents emergency department with vomiting yesterday and today. Vomiting after drinking alcohol. He has upper mid abdominal pain that is crampy. No radiation to back. Seen September 01 for same symptoms with workup. He tells me that he went with friends to a [employer] concert over the week and then took LSD and then freaked out and walked out of the concert and walked all night and has blisters on his feet and sore legs. No chest pain or shortness of breath. Blood streaks in emesis. ROS 10 systems were reviewed and negative with the exception of the elements mentioned in the history of present illness (Bandar Obregon) Past Medical/Surgical History: Alcoholism, GI bleed, chronic back pain (Bandar Obregon) Social History: , smoker, recent alcohol (Bandar Obregon) Physical Exam: General Appearance: Alert well-developed male mild distress vital signs show heart rate 105 Eyes: Pupils equal and round no pallor or injection. ENT, Mouth: Mucous membranes are moist. Respiratory: There are no retractions, lungs are clear to auscultation. Cardiovascular: Regular rate and rhythm. Gastrointestinal: Abdomen is soft with tenderness in the epigastrium. No masses. Normal bowel sounds Neurological: Awake and alert, sensory and motor exams grossly normal. Skin: Warm and dry, no rashes. Musculoskeletal: Neck is supple nontender. Extremities symmetrical, full range of motion. Psychiatric: Patient is oriented X 3, there is no agitation. (Bandar Obregon) Constitutional: Initial Vital Signs Temperature (C) 36.6 C 09/26/18 22:22 Heart Rate 105 H 09/26/18 22:22 Respiratory Rate 16 09/26/18 22:22 Blood Pressure 136/99 H 09/26/18 22:22 O2 Sat (%) 95 09/26/18 22:22 O2 Delivery Mode Room Air Allergies/Adverse Reactions: No Known Allergies Allergy (Verified 09/01/18 11:08) Home Medications: Medication Instructions Recorded traMADol [Ultram 50 mg (*)] 50 mg PO Q4 PRN 09/01/18 Cephalexin [Keflex (*)] 500 mg PO BID 09/27/18 Gabapentin [Neurontin 100 MG (*)] 100 mg PO TID 09/27/18 Nicotine [Nicoderm Cq 21 mg (*)] 21 mg TD DAILY 09/27/18 Medical Decision Making Procedures: IV normal saline, Zofran IV, Protonix IV, GI cocktail (Bandar Obregon) 0130: Patient was signed over to me at midnight. Patient resting comfortably he is intoxicated with alcohol. He has not any vomiting here. He is receiving a 2nd L fluid. Is noted his lipase is 19,000. On exam of his abdomen is mildly tender in his epigastric region. No peritoneal signs. Plan will be for admission the hospital for acute pancreatitis most likely alcohol induced. I spoke with Dr. Harrington agrees to admit. (Wong Brennan) Care Turn Over: care to Dr. Rodriguez at 11:10 pm (Bandar Obregon) - Data Points Laboratory Results: Laboratory Results 09/26/18 22:35 09/26/18 22:35 Medications Given: Hydromorphone HCl (Dilaudid) 0.2 - 0.4 mg IVP Q3HRS PRN PRN Reason: Pain, Severe Unable to Take PO Stop: 10/07/18 01:35 Last Admin: 09/28/18 22:22 Dose: 0.4 mg Thiamine HCl 500 mg/ Sodium (Chloride) 105 mls @ 210 mls/hr IV DAILY [facility] Stop: 09/30/18 08:59 Last Admin: 09/28/18 11:54 Dose: 105 mls Cefazolin Sodium/Dextrose (Ancef 1 Gm (Premix)) 50 mls @ 200 mls/hr IV Q8HRS CARLA PRN Reason: Protocol Stop: 10/27/18 13:59 Last Admin: 09/28/18 21:07 Dose: 50 mls Lactated Ringer's (Lr) 1,000 mls @ 125 mls/hr IV CONT CARLA Stop: 03/26/19 09:29 Last Admin: 09/28/18 17:42 Dose: 1,000 mls Lorazepam (Ativan Injection) 1 mg IVP Q8HRS PRN PRN Reason: Anxiety, Unable to Take PO Stop: 03/26/19 01:35 Last Admin: 09/28/18 11:34 Dose: 1 mg Lorazepam (Ativan Injection) 0 mg IVP Q1H PRN; Protocol PRN Reason: Alcohol Withdrawal w/IV access Stop: 03/26/19 01:42 Last Admin: 09/28/18 19:41 Dose: 2 mg Nicotine (Nicoderm Cq) 21 mg TD DAILY [facility] Stop: 03/27/19 08:59 Last Admin: 09/28/18 11:54 Dose: 21 mg Ondansetron HCl (Zofran) 4 mg IVP Q4HRS PRN PRN Reason: Nausea/Vomiting, Can't Take PO Stop: 03/26/19 01:35 Last Admin: 09/28/18 15:15 Dose: 4 mg Pantoprazole Sodium (Protonix) 40 mg IVP BID [facility] Stop: 03/26/19 20:59 Last Admin: 09/28/18 21:07 Dose: 40 mg Promethazine HCl (Phenergan) 6.25 - 12.5 mg IVP Q6HRS PRN PRN Reason: Nausea/Vomiting, Use 2nd Stop: 03/26/19 01:38 Last Admin: 09/27/18 12:19 Dose: 12.5 mg Discontinued Medications Al Hydroxide/Mg Hydroxide (Maalox Susp) 30 ml PO ONCE ONE Stop: 09/26/18 22:47 Last Admin: 09/26/18 23:03 Dose: 30 ml Diazepam (Valium) 2.5 - 5 mg IVP Q5M PRN PRN Reason: PACU, Muscle Spasms Stop: 09/28/18 10:16 Last Admin: 09/28/18 10:16 Dose: 2.5 mg Enoxaparin Sodium (Lovenox) 40 mg SC DAILY [facility] Stop: 03/26/19 08:59 Last Admin: 09/27/18 11:05 Dose: Not Given Fentanyl (Sublimaze) 25 - 100 mcg IVP Q5M PRN PRN Reason: PACU, IMMEDIATE Pain control Stop: 09/28/18 10:16 Last Admin: 09/28/18 11:34 Dose: 50 mcg Sodium Chloride (Ns) 1,000 mls @ 0 mls/hr IV EDNOW ONE; Wide Open PRN Reason: Protocol Stop: 09/26/18 22:47 Last Admin: 09/26/18 23:01 Dose: 1,000 mls Sodium Chloride (Ns) 1,000 mls @ 0 mls/hr IV ONCE ONE PRN Reason: Wide Open Stop: 09/27/18 01:30 Last Admin: 09/27/18 01:36 Dose: 1,000 mls Sodium Chloride (Ns) 1,000 mls @ 150 mls/hr IV CONT [facility]LA Stop: 03/26/19 01:44 Last Admin: 09/27/18 03:06 Dose: 1,000 mls Famotidine/Sodium Chloride (Pepcid 20 Mg (Premix)) 50 mls @ 200 mls/hr IV Q12HRS [facility] Stop: 03/26/19 01:44 Last Admin: 09/27/18 03:07 Dose: Not Given Lactated Ringer's (Lr) 1,000 mls @ 0 mls/hr IV ONCE ONE PRN Reason: KVO Stop: 09/28/18 08:04 Last Admin: 09/28/18 08:22 Dose: 1,000 mls Lidocaine (Lidocaine 2% Viscous) 15 ml PO ONCE ONE Stop: 09/26/18 22:47 Last Admin: 09/26/18 23:03 Dose: 15 ml Midazolam HCl (Versed) 2 mg IVP ONCE ONE Stop: 09/28/18 08:38 Last Admin: 09/28/18 08:45 Dose: 2 mg Pantoprazole Sodium (Protonix) 80 mg IVP EDNOW ONE Stop: 09/26/18 22:47 Last Admin: 09/26/18 23:03 Dose: 80 mg Pantoprazole Sodium (Protonix) 40 mg IVP Q6H [facility] Stop: 03/26/19 05:59 Last Admin: 09/27/18 06:08 Dose: 40 mg Promethazine HCl (Phenergan) 12.5 mg IVP EDNOW ONE Stop: 09/26/18 22:48 Last Admin: 09/26/18 23:02 Dose: 12.5 mg Departure - Departure Disposition: [facility] In[facility] Acute Clinical Impression: Pancreatitis Qualifiers: Chronicity: acute Pancreatitis type: alcohol induced Acute pancreatitis complication: unspecified Qualified Code(s): K85.20 - Alcohol induced acute pancreatitis without necrosis or infection Alcohol intoxication Qualifiers: Complication of substance-induced condition: uncomplicated Qualified Code(s): F10.920 - Alcohol use, unspecified with intoxication, uncomplicated Condition: Fair
[2018-09-26] MEDS ORDERED: MAG HYDROX/AL HYDROX/SIMETH 30 ML UDCUP PO ONE (22:46)
[2018-09-26] MEDS ORDERED: LIDOCAINE 2% VISCOUS 15 ML UDCUP PO ONE (22:46)
[2018-09-26] MEDS ORDERED: NS 1,000 ML IV ONE (22:46)
[2018-09-26] MEDS ORDERED: PANTOPRAZOLE SODIUM 40 MG VIAL IVP ONE (22:46)
[2018-09-26] MEDS ORDERED: PROMETHAZINE HCL 25 MG/ML INJ IVP ONE (22:47)
[2018-09-26 22:53] LABS: PLATELET COUNT 474 10^3/uL (150-400)
[2018-09-27] MEDS ORDERED: NS 1,000 ML IV ONE (01:29)
[2018-09-27] MEDS ORDERED: ONDANSETRON DISINTEGRATING 4 MG TAB PO PRN (01:36)
[2018-09-27] MEDS ORDERED: LORazepam 2 MG/ML INJ IVP PRN (01:36)
[2018-09-27] MEDS ORDERED: PROMETHAZINE HCL 25 MG/ML INJ IVP PRN (01:39)
[2018-09-27] MEDS ORDERED: FLUMAZENIL 0.5 MG/5 ML MDV IVP PRN (01:43)
[2018-09-27] MEDS ORDERED: FAMOTIDINE 20 MG/NACL 50 ML IV SCH (01:45)
[2018-09-27] MEDS ORDERED: NS 1,000 ML IV SCH (01:45)
--- NOTE | 2018-09-27 04:12 | PDGENHP ---
History and Physical - Chief Complaint Not nausea vomiting - History of Present Illness Source-patient is intoxicated somnolent. Does wake to name shortly but with falls back asleep. EMR was reviewed and case discussed he divider. HPI - 43-year-old gentleman with past medical history significant for alcohol dependence, remote GI bleed who presents emergency department today with complaints of mid abdominal pain with associated nausea vomiting and hematemesis. Patient unable to provide significant amount of history but was able to tell the ED nursing staff and provider that he was at a concert in [place] and partook in some illicit drug use including LSD. He also endorses binge drinking over the weekend as well. He denies any daily alcohol intake. Patient subsequently left the concert and walks from [place] to [place]. A he presented the ED with complaints of hematemesis, nausea and vomiting, abdominal pain. Patient without any known fevers or chills. No reported diarrhea. History Information - Allergies/Home Medication List Allergies/Adverse Reactions: No Known Allergies Allergy (Verified 09/01/18 11:08) Home Medications: traMADol [Ultram 50 mg (*)] 50 mg PO Q4 PRN 09/01/18 [Last Taken 09/24/18] Cephalexin [Keflex (*)] 500 mg PO BID 09/27/18 [Last Taken 09/24/18] Gabapentin [Neurontin 100 MG (*)] 100 mg PO TID 09/27/18 [Last Taken 09/24/18] Nicotine [Nicoderm Cq 21 mg (*)] 21 mg TD DAILY 09/27/18 [Last Taken 09/24/18] I have personally reviewed and updated: family history, medical history, social history, surgical history Past Medical History: Chart reviewed - Past Medical History Additional medical history: Alcohol abuse, history GI bleed with biopsy showing inflammation of the gastric fundus. Negative H pylori. Chronic back pain. - Surgical History Additional surgical history: tonsillectomy - Family History Positive for: cancer (Father- 2/2 leukemia), diabetes type II, stroke - Social History Smoking Status: Heavy smoker Tobacco Use: Cigarettes Alcohol Use: Heavy (With history of bingeing) Drug Use: Other (Psychotropic so including LSD.) Review of Systems Review of Systems: ROS: 10pt was reviewed & negative except for what was stated in HPI & below Physical Exam Physical Exam: Selected Entries 09/26/18 22:22 Blood Pressure Automatic Method Heart Rate 105 H Respiratory 16 Rate O2 Sat (%) 95 Temperature (C) 36.6 C Blood Pressure 136/99 H Mean Arterial 111 H Pressure (MAP) O2 Delivery Room Air Mode Temperature Oral Source Temp Pulse Resp BP Pulse Ox 36.2 C 90 18 109/94 H 97 09/27/18 02:42 09/27/18 02:42 09/27/18 02:42 09/27/18 02:42 09/27/18 02:42 Constitutional: no apparent distress, appears nourished, other (Patient sun tanned on exposed extremities face/neck in particular. He is somnolent and wakes intermittently to answer simple questions and then falls asleep.) Eyes: PERRL (Decreased reactivity light bilaterally but symmetric.), EOMI ( Unable to assess due to patient's somnolence), other (Wearing glasses), No scleral injection Ears, Nose, Mouth, Throat: poor dentition, dry mucous membranes, other (No nasal discharge.) Cardiovascular: regular rate and rhythym, no murmur, rub, or gallop, pulses symmetric bilaterally Peripheral Pulses: 2+: dorsalis-pedis (R), dorsalis-pedis (L) Respiratory: no respiratory distress, no rales or rhonchi, reduced air movement (Decreased inspiratory effort. Patient is somnolent.), No expiratory wheeze, No inspiratory crackles Gastrointestinal: normoactive bowel sounds, soft, non-tender abdomen (Patient not reactive when abdomen is palpated.), No guarding, No distension Genitourinary: no bladder tenderness, No rios in urethra Skin: warm, other (Sun tanned skin) Musculoskeletal: other (Limited exam due to patient's somnolence.) Neurologic: other (Limited exam due to somnolence however patient is able to move his extremities while lying in bed.) Psychiatric: other (Somnolent sedated limited evaluation) Lab Data & Imaging Review 09/27/18 05:02 09/27/18 05:02 WBC 9.96 10^3/uL (3.80-9.50) H 09/26/18 22:35 RBC 4.63 10^6/uL (4.40-6.38) 09/26/18 22:35 Hgb 14.8 g/dL (13.7-17.5) 09/26/18 22:35 Hct 42.9 % (40.0-51.0) 09/26/18 22:35 MCV 92.7 fL (81.5-99.8) 09/26/18 22:35 MCH 32.0 pg (27.9-34.1) 09/26/18 22:35 MCHC 34.5 g/dL (32.4-36.7) 09/26/18 22:35 RDW 14.4 % (11.5-15.2) 09/26/18 22:35 Plt Count 474 10^3/uL (150-400) H 09/26/18 22:35 MPV 8.3 fL (8.7-11.7) L 09/26/18 22:35 Neut % (Auto) 50.5 % (39.3-74.2) 09/26/18 22:35 Lymph % (Auto) 31.6 % (15.0-45.0) 09/26/18 22:35 [place] % (Auto) 13.4 % (4.5-13.0) H 09/26/18 22:35 Eos % (Auto) 2.3 % (0.6-7.6) 09/26/18 22:35 Baso % (Auto) 1.0 % (0.3-1.7) 09/26/18 22:35 Nucleat RBC Rel Count 0.0 % (0.0-0.2) 09/26/18 22:35 Absolute Neuts (auto) 5.03 10^3/uL (1.70-6.50) 09/26/18 22:35 Absolute Lymphs (auto) 3.15 10^3/uL (1.00-3.00) H 09/26/18 22:35 Absolute Monos (auto) 1.33 10^3/uL (0.30-0.80) H 09/26/18 22:35 Absolute Eos (auto) 0.23 10^3/uL (0.03-0.40) 09/26/18 22:35 Absolute Basos (auto) 0.10 10^3/uL (0.02-0.10) 09/26/18 22:35 Absolute Nucleated RBC 0.00 10^3/uL (0-0.01) 09/26/18 22:35 Immature Gran % 1.2 % (0.0-1.1) H 09/26/18 22:35 Immature Gran # 0.12 10^3/uL (0.00-0.10) H 09/26/18 22:35 Sodium 142 mEq/L (135-145) 09/26/18 22:35 Potassium 5.2 mEq/L (3.5-5.2) 09/26/18 22:35 Chloride 108 mEq/L (97-110) 09/26/18 22:35 Carbon Dioxide 19 mEq/l (22-31) L 09/26/18 22:35 Anion Gap 15 mEq/L (6-14) H 09/26/18 22:35 BUN 14 mg/dL (7-23) 09/26/18 22:35 Creatinine 0.8 mg/dL (0.7-1.3) 09/26/18 22:35 Estimated GFR > 60 09/26/18 22:35 Glucose 80 mg/dL (70-100) 09/26/18 22:35 Calcium 9.2 mg/dL (8.5-10.4) 09/26/18 22:35 Lipase 71471 IU/L (23-300) H 09/26/18 22:35 Ethyl Alcohol 283 mg/dL (0-10) H 09/26/18 22:35 Assessment & Plan Assessment: 43-year-old gentleman with past medical history significant for alcohol dependence, remote GI bleed who presents emergency department today with complaints of mid abdominal pain with associated nausea vomiting and hematemesis. #Acute alcoholic Pancreatitis (Acute) - patient noted to have a history and reported bingeing and ongoing alcohol dependence. Patient will be made NPO. IV fluids and pain medications be given. report of hematemesis - PPI therapy scheduled. No episodes of hematemesis witnessed in the ED. check lfts. H&H is within normal limits at this time will monitor clinically. If any additional changes consider GI consultation in this patient does have a history of GI bleeding. Currently Vital signs are within normal limits. #Alcohol intoxication (Acute) - patient quite somnolent. ETOH level 280s. CIWA protocol. #Abdominal pain - patient currently comfortable resting. P.r.n. Dilaudid as patient is NPO. #Nausea/vomiting - currently stabilized. Antiemetics p.r.n.. FEN - IVF. NPO. electrolyte monitoring and replacement prn. PPX - SCDs. holding anticoagulation with report of hematemesis. COR - FULL. Dispo - Admit to inpatient status given severity of pancreatitis and c/o hematemesis with history of GIB/etoh. Anticipate > 2 midnight stay for continued treatment , pain management.
[2018-09-27 05:23] LABS: PLATELET COUNT 380 10^3/uL (150-400)
[2018-09-27 05:26] LABS: INR 1.08 (0.83-1.16); PROTIME(PATIENT) 13.6 SEC (12.0-15.0)
[2018-09-27] MEDS ORDERED: PANTOPRAZOLE SODIUM 40 MG VIAL IVP SCH (06:00)
[2018-09-27] MEDS ORDERED: ENOXAPARIN 40 MG/0.4 ML SYR SC SCH (09:00)
[2018-09-27] MEDS ORDERED: traMADol 50 MG TAB PO PRN (09:03)
[2018-09-27] MEDS: LORazepam 2 MG/ML INJ IVP PRN ×3 (09:05→18:38)
--- NOTE | 2018-09-27 09:11 | HOSPPROG ---
Hospitalist Progress Note Assessment/Plan: # etOH pancreatitis - quite elevated lipase - cont conservative management including IVF and pain control # etOH abuse and withdrawal - drinks a bottle of liquor daily, at risk for severe w/d; has never had a seizure - interested in abstinence - cont CIWA, thiamine # hematemesis - last EGD reviewed from 2015 showed gastropathy - call paced to Dr Cote - cont PPI IV # cellulitis on L leg Subjective: still feels shaky Objective: Vital Signs Temp Pulse Resp BP Pulse Ox 37.0 C 84 13 113/90 H 94 09/27/18 08:19 09/27/18 08:19 09/27/18 08:19 09/27/18 08:19 09/27/18 08:19 Laboratory Results 09/27/18 05:02 09/27/18 05:02 09/26/18 09/27/18 09/28/18 05:59 05:59 05:59 Intake Total 1999 Balance 1999 PT 13.6 SEC (12.0-15.0) 09/27/18 05:02 INR 1.08 (0.83-1.16) 09/27/18 05:02 chart reviewed EGD from 2016 reviewed 35 mins spent on prolonged direct patient care - Physical Exam Constitutional: uncomfortable, other (diaphoretic) Cardiovascular: regular rate and rhythym, no murmur, rub, or gallop Respiratory: no respiratory distress, no rales or rhonchi, clear to auscultation Gastrointestinal: normoactive bowel sounds, other (soft, diffuse TTP) ICD10 Worksheet Patient Problems: Problems Problem Status Onset Alcohol intoxication Acute Pancreatitis Acute Alcohol withdrawal Acute Hematemesis Acute Nausea & vomiting Acute
[2018-09-27] MEDS: ONDANSETRON 4 MG/2 ML VIAL IVP PRN (09:15)
[2018-09-27] MEDS: HYDROmorphONE/DILAUDID 1 MG/ML INJ IVP PRN ×3 (09:16→18:38)
[2018-09-27] MEDS: LR 1,000 ML IV SCH ×2 (09:24→18:43)
[2018-09-27] MEDS: THIAMINE HCL 500 MG in NS 100 ML IV SCH (09:25)
--- NOTE | 2018-09-27 11:10 | PDMN ---
Medical Necessity Medical necessity: Pt meets IP criteria per & MCG M-250; est los >2 mn for eval/tx of acute pancreatitis w/abdominal pain, elevated lipase (67061), hematemesis & alcohol withdrawal; requiring further monitoring, NPO status, IVFs , IV Dilaudid, IV PPI, CIWA protocol & GI consult; hx alcohol abuse; per H&P & order 09/27/18
--- NOTE | 2018-09-27 12:42 | GCON ---
[f rep st] CONSULTATION CHIEF COMPLAINT: A 43-year-old male with nausea, vomiting, hematemesis. HISTORY OF PRESENT ILLNESS: I have been asked to see this 43-year-old male in consultation by Dr. Charlotte Pereyra for evaluation of hematemesis. The patient has a significant history of alcohol depen dence. Questionable remote history of GI bleed. He had been drinking yesterday, was feeling unwell, was having abdominal pain, had associated nausea and vomiting. He reported that he had vomited some reddish material several times. He does have a history of illicit drug use, as well as LSD. He had been binge-drinking over the weekend. He presented to the emergency department and he was hemodynam ically stable with hematocrit of 42.9. LFTs were normal. PT was 13.6 with an INR of 1.08. He denie s any problems with heartburn or difficulty eating. He denies any melenic stool. The patient was no kristina to have an elevated lipase of 19,000. I was asked to see patient for further evaluation. He has had a remote history of questionable GI bleeding and an upper endoscopy that showed gastritis, negat ferny for H pylori. PAST MEDICAL HISTORY: Depression, chronic back pain. PAST SURGICAL HISTORY: Remarkable for tonsillectomy. ALLERGIES: He has no known drug allergies. HOME MEDICATIONS: Include Robaxin, tramadol, Celexa. FAMILY HISTORY: Remarkable for colon cancer. Father, diabetes mellitus, stroke. Otherwise, noncont ributory per chief complaint. SOCIAL HISTORY: Heavy smoker. Alcohol as above. 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 He is currently [place] with his ex-. REVIEW OF SYSTEMS: Negative for 10 systems other than mentioned in the HPI. PHYSICAL EXAM: VITAL SIGNS: 109/74, 97% sat, 36.2, pulse is 90. HEENT: Normocephalic, atraumatic. EOMI. Neck is supple. No cervical adenopathy. Mucous membranes are moist. LUNGS: Clear. CARDI AC: Normal S1, S2 without murmur. ABDOMEN: Benign, soft. No hepatosplenomegaly. Nontender. EXTR EMITIES: Unremarkable without clubbing, cyanosis, or edema. SKIN: Warm, dry and intact. NEUROLOGI C: Grossly nonfocal. PSYCH: Affect is appropriate, and alert and oriented x3. LABORATORY DATA: As above. IMPRESSION: A 43-year-old male with history of significant alcohol use and binge-drinking. Admitted to the hospital with abdominal pain, pancreatitis, had an episode of nausea and vomiting with hemate mesis. He has been hemodynamically stable without drop in hematocrit. Suspect he has underlying alc oholic gastritis and/or esophagitis, Mackenzie-Guy tear. RECOMMENDATIONS: 1. Supportive care. 2. Serial H and H. 3. IV Protonix 40 mg twice daily. 4. Proceed with diagnostic endoscopy tomorrow for further evaluation. We will follow with you. /[id number]/MODL
[2018-09-27] MEDS ORDERED: GABAPENTIN 100 MG CAP PO SCH (16:00)
--- NOTE | 2018-09-27 16:06 | ASMTCMCOM ---
CM Note CM Note Notes: Reviewed chart, pt admitted to hospital after attending a concert and walking from [place] to [place]. He c/o abd pain and studies show pancreatitis. 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 PT eval pending, CM w/f. DC Plan: TBD Date Signed: 09/27/2018 04:05 PM Electronically Signed By:Kaia Mittal RN
[2018-09-27] MEDS ORDERED: CEPHALEXIN 500 MG CAP PO SCH (21:00)
[2018-09-27] MEDS: PANTOPRAZOLE SODIUM 40 MG VIAL IVP SCH (21:35)
[2018-09-28] MEDS: LR 1,000 ML IV SCH ×2 (04:48→17:42)
[2018-09-28] MEDS: LORazepam 2 MG/ML INJ IVP PRN ×6 (04:49→19:41)
[2018-09-28] MEDS ORDERED: LR 1,000 ML IV ONE (08:03)
[2018-09-28] MEDS ORDERED: MIDAZOLAM 2 MG/2 ML VIAL IVP ONE (08:37)
--- NOTE | 2018-09-28 08:37 | PDANEPAE ---
ANE History of Present Illness here for EGD for GIB ANE Past Medical History - Pulmonary History Hx Oxygen in Use at Home: No Hx Sleep Apnea: No Sleep Apnea Screening Result - Last Documented: Negative - Endocrine History Hx Diabetes: No - Chronic Pain History Chronic Pain: Yes ANE Review of Systems Review of Systems: ANE Patient History - Allergies Allergies/Adverse Reactions: No Known Allergies Allergy (Verified 09/01/18 11:08) - Home Medications Home Medications: traMADol [Ultram 50 mg (*)] 50 mg PO Q4 PRN 09/01/18 [Last Taken 09/24/18] Cephalexin [Keflex (*)] 500 mg PO BID 09/27/18 [Last Taken 09/24/18] Gabapentin [Neurontin 100 MG (*)] 100 mg PO TID 09/27/18 [Last Taken 09/24/18] Nicotine [Nicoderm Cq 21 mg (*)] 21 mg TD DAILY 09/27/18 [Last Taken 09/24/18] - NPO status NPO Since - Liquids (Date): 09/27/18 NPO Since - Solids (Date): 09/26/18 - Smoking Hx Smoking Status: Heavy smoker - Alcohol Use Alcohol Use: Heavy (With history of bingeing) ANE Labs/Vital Signs - Labs Result Diagrams: 09/27/18 05:02 09/27/18 05:02 - Vital Signs Blood Pressure: 137/84 Heart Rate: 76 Respiratory Rate: 16 O2 Sat (%): 95 Height: 175.26 cm Weight: 75.1 kg ANE Physical Exam - Airway Neck exam: FROM Mallampati Score: Class 2 Mouth exam: normal dental/mouth exam, poor dentition - Pulmonary Pulmonary: no respiratory distress, no rales or rhonchi - Cardiovascular Cardiovascular: regular rate and rhythym, no murmur, rub, or gallop - ASA Status ASA Status: IV ANE Anesthesia Plan Anesthesia Plan: GA with mask Total IV Anesthesia: Yes
[2018-09-28] MEDS ORDERED: fentaNYL 100 MCG/2 ML INJ ONE ×3 (08:49→10:51)
[2018-09-28] MEDS ORDERED: LIDOCAINE 2% 100 MG/5 ML SYR ONE (08:49)
[2018-09-28] MEDS ORDERED: PROPOFOL 200 MG/20 ML VIAL ONE ×2 (08:50)
--- NOTE | 2018-09-28 09:13 | GIREPORT ---
[facility] - Endoscopy Department Patient Name: Josh Catherine Procedure Date: 09/28/2018 8:46 AM Patient Type: Inpatient Attending MD/ ER Physician: Eleazar Cote MD Procedure: Upper GI endoscopy Indications: Epigastric abdominal pain, Hematemesis, Alcolohic pancreatitis Providers: Eleazar Cote MD Medicines: Propofol per Anesthesia Complications: No immediate complications. Description of Procedure: After obtaining informed consent, the endoscope was passed under direct vision. Throughout the procedure, the patient's blood pressure, pulse, and oxygen saturations were monitored continuously. The Endoscope was intro duced through the mouth, and advanced to the second part of duodenum. The [facility] er GI endoscopy was accomplished without difficulty. The patient tolerated th e procedure well. Findings: LA Grade A (one or more mucosal breaks less than 5 mm, not extending be tween tops of 2 mucosal folds) esophagitis with no bleeding was found 40 cm f rom the incisors. The Z-line was irregular and was found 40 cm from the incisors. Mild portal hypertensive gastropathy was found in the entire examined stomach. Biopsies were taken with a cold forceps for histology. The examined duodenum was normal. Estimated Blood Loss: Estimated blood loss: none. Post Op Diagnosis: - LA Grade A reflux esophagitis. - Z-line irregular, 40 cm from the incisors. - Portal hypertensive gastropathy. Biopsied. - Normal examined duodenum. Recommendation: - Await pathology results. - NPO until pain resolved from pancreatitis. - Use Protonix (pantoprazole) 40 mg PO daily. - Will sign off, please call wt further questions - Thank you for allowing me to participate in the care of your patient. Attending Participation: I personally performed the entire procedure. Eleazar Cote MD Eleazar Cote MD 09/28/2018 9:12:07 AM This report has been signed electronicallyStwm Cote MD Number of Addenda: 0 Note Initiated On: 09/28/2018 8:46 AM [email or web address]
[2018-09-28] MEDS ORDERED: NALOXONE HCL 0.4 MG/ML INJ IVP PRN (09:16)
[2018-09-28] MEDS ORDERED: LR 500 ML IV PRN (09:16)
[2018-09-28] MEDS ORDERED: MEPERIDINE 25 MG/0.5 ML AMP IVP PRN (09:16)
--- NOTE | 2018-09-28 09:16 | POSTANESTH ---
Post Anesthetic Evaluation Cardiovascular Status: Normal, Stable Respiratory Status: Normal, Stable Level of Consciousness/Mental Status: Can Participate in Eval, Moderately Sleepy Pain Control: Adequate, Prn Tx Ordered Nausea/Vomiting Control: Adequate, Prn Tx Ordered Complications Possibly Related to Anesthesia: None Noted
[2018-09-28] MEDS ORDERED: DIAZEPAM 5 MG/ML 1 ML SYR ONE (09:30)
[2018-09-28] MEDS ORDERED: ONDANSETRON 4 MG/2 ML VIAL ONE (09:30)
[2018-09-28] MEDS: ONDANSETRON 4 MG/2 ML VIAL IVP PRN ×2 (09:33→15:15)
[2018-09-28] MEDS: DIAZEPAM 5 MG/ML 1 ML SYR IVP PRN ×2 (09:33→10:16)
[2018-09-28] MEDS ORDERED: LORazepam 2 MG/ML INJ ONE (09:41)
[2018-09-28] MEDS: fentaNYL 100 MCG/2 ML INJ IVP PRN ×4 (09:43→11:34)
[2018-09-28] MEDS: THIAMINE HCL 500 MG in NS 100 ML IV SCH (11:54)
[2018-09-28] MEDS: PANTOPRAZOLE SODIUM 40 MG VIAL IVP SCH ×2 (11:54→21:07)
[2018-09-28] MEDS: NICOTINE 21 MG/24 HR PATCH TD SCH (11:54)
--- NOTE | 2018-09-28 13:34 | ASMTCAGE ---
CAGE Do you feel you ought to Answers: Yes cut down on your drinking or drug use? Do people annoy you by Answers: No criticizing your drinking or drug use? Do you feel guilty about Answers: Yes your drinking or drug use? 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 Date Signed: 09/28/2018 01:34 PM Electronically Signed By:JUSTINE Strauss
--- NOTE | 2018-09-28 13:37 | ASMTCMCOM ---
CM Note CM Note Notes: Pts case discussed w/ Dr. Silver and BRITANY Velasquez. Pt is a 43 y/o man admitted for abdominal pain and pancreatitis. Pt has a hx of etoh abuse. Pt had an EGD today. Referral made to [facility]. CM met w/ pt and provided etoh resources. Pt reports that he is currently living w/ his mom in [facility]. Pt will most likely d/c without any needs. CAGE completed. CM available for changes. Plan: Independent Date Signed: 09/28/2018 01:36 PM Electronically Signed By:JUSTINE Strauss
[2018-09-28] MEDS ORDERED: PROTOCOL MAGNESIUM 1 DOSE IV PRN (15:07)
[2018-09-28] MEDS ORDERED: PROTOCOL POTASSIUM 1 DOSE MISC PRN (15:07)
--- NOTE | 2018-09-28 15:07 | HOSPPROG ---
Hospitalist Progress Note Assessment/Plan: DIAGNOSES: * Acute alcohol induced pancreatitis; no specific complications at this time, has not had imaging * Alcohol abuse and high risk for alcohol withdrawal, patient desiring to quit alcohol * Acute hematemesis on day of admission, likely due to his vomiting but no bleeding lesions seen on EGD * Acute metabolic acidosis improving * Cellulitis of left leg This is the 1st visit for me with this patient At this point the patient has risk of developing much more severe DTs/ withdrawal in the next day or 2 and will need to continue close monitoring, consider transfer to ICU if necessary PLANS: * Continue conservative care with NPO, IV hydration, pain and nausea medicines * Consider CT scan if he does not have resolving symptoms or other signs of complication arise * CIWA protocol * Thiamin replacement * Continue IV cefazolin for now * Electrolyte protocol will be ordered and will watch for any decreases in potassium and magnesium * Proton pump inhibitors Reviewed today with Dr. Eleazar Cote SUBJECTIVE: Still with remarkable upper abdominal pain radiating through to mid back requiring ongoing pain medicine Nausea requiring antiemetics Per nurse he requires quite regular dosing of 2 mg Ativan which is keeping his CIWA mostly below 7 OBJECTIVE Vitals reviewed: Mildly hypertensive at times otherwise normal without fever CIWA Exam: alert oriented, anxious and tremulous at this time skin warm dry color ok, no jaundice resps not labored lungs diminished but clear BSs, heart regular abd mildly distended, fairly tender across the upper abdomen with guarding but no rebound, bowel sounds present limbs warm, no edema; leg cellulitis slightly better still prominent iv site ok EGD results today: Portal hypertensive gastropathy was noted which was biopsied as well as reflux esophagitis No bleeding was seen during the procedure Objective: Vital Signs Temp Pulse Resp BP Pulse Ox 36.5 C 68 14 136/93 H 96 09/28/18 12:00 09/28/18 12:00 09/28/18 12:00 09/28/18 12:00 09/28/18 12:00 Laboratory Results 09/27/18 05:02 09/27/18 05:02 09/27/18 09/28/18 09/29/18 06:59 06:59 06:59 Intake Total 2000 1000 Output Total 1000 0 Balance 2000 -1000 1000 PT 13.6 SEC (12.0-15.0) 09/27/18 05:02 INR 1.08 (0.83-1.16) 09/27/18 05:02 - Time Spent With Patient Time Spent with Patient: greater than 35 minutes Time Spent with Patient: Greater than 35 minutes spent on this patients care, greater than 50% of time spent counseling, educating, and coordinating care regarding the above mentioned plan. ICD10 Worksheet Patient Problems: Problems Problem Status Onset Alcohol intoxication Acute Pancreatitis Acute Alcohol withdrawal Acute Hematemesis Acute Nausea & vomiting Acute
[2018-09-28] MEDS: HYDROmorphONE/DILAUDID 1 MG/ML INJ IVP PRN ×2 (15:15→22:22)
[2018-09-29] MEDS: HYDROmorphONE/DILAUDID 1 MG/ML INJ IVP PRN ×5 (02:14→23:18)
[2018-09-29] MEDS: LR 1,000 ML IV SCH ×3 (02:14→18:22)
[2018-09-29] MEDS: LORazepam 2 MG/ML INJ IVP PRN ×5 (04:14→21:23)
[2018-09-29] MEDS: PANTOPRAZOLE SODIUM 40 MG VIAL IVP SCH ×2 (09:46→20:50)
[2018-09-29] MEDS: THIAMINE HCL 500 MG in NS 100 ML IV SCH (09:50)
[2018-09-29] MEDS: NICOTINE 21 MG/24 HR PATCH TD SCH (09:50)
--- NOTE | 2018-09-29 15:25 | HOSPPROG ---
Hospitalist Progress Note Assessment/Plan: DIAGNOSES: * Acute alcohol induced pancreatitis; no specific complications at this time, has not had imaging * Ongoing alcohol withdrawal, being treated with Ativan per CIWA * Acute hematemesis on day of admission, likely due to his vomiting but no bleeding lesions seen on EGD * Acute metabolic acidosis improving * Cellulitis of left leg * Alcoholism, suspected thiamine deficiency being replaced at this time; patient wishing to become sober and agreeing to withdrawing under treatment at this time At this point the patient has risk of developing much more severe DTs/ withdrawal in the next day or 2 and will need to continue close monitoring, consider transfer to ICU if necessary PLANS: * Continue conservative care with NPO, IV hydration, pain and nausea medicines * Consider CT scan if he does not have resolving symptoms or other signs of complication arise * CIWA protocol * Thiamin replacement * Continue IV cefazolin for now * Electrolyte protocol will be ordered and will watch for any decreases in potassium and magnesium * Proton pump inhibitors Reviewed today with Dr. Eleazar Cote SUBJECTIVE: Still with remarkable upper abdominal pain radiating through to mid back requiring ongoing pain medicine Nausea requiring antiemetics Per nurse he requires quite regular dosing of 2 mg Ativan which is keeping his CIWA mostly below 7 OBJECTIVE Vitals reviewed: Mildly hypertensive at times otherwise normal without fever CIWA: As high as 8 - 10 while receiving frequent Ativan Exam: alert slightly disoriented, still quite anxious and tremulous at this time skin warm dry color ok, no jaundice resps not labored lungs diminished but clear BSs, heart regular abd mildly distended, woven blind loom tender across the upper abdomen with guarding but no rebound, bowel sounds present limbs warm, no edema; leg cellulitis nearly resolved iv site ok Lab data: Potassium and magnesium good Objective: Vital Signs Temp Pulse Resp BP Pulse Ox 36.9 C 52 L 16 132/87 H 93 09/29/18 11:35 09/29/18 11:35 09/29/18 11:35 09/29/18 11:35 09/29/18 11:35 Laboratory Results 09/27/18 05:02 09/29/18 05:04 09/28/18 09/29/18 09/30/18 06:59 06:59 06:59 Intake Total 2020 Output Total 1000 1425 Balance -1000 595 PT 13.6 SEC (12.0-15.0) 09/27/18 05:02 INR 1.08 (0.83-1.16) 09/27/18 05:02 ICD10 Worksheet Patient Problems: Problems Problem Status Onset Alcohol intoxication Acute Pancreatitis Acute Alcohol withdrawal Acute Hematemesis Acute Nausea & vomiting Acute
[2018-09-29] MEDS: ONDANSETRON 4 MG/2 ML VIAL IVP PRN ×2 (18:22→23:17)
[2018-09-29] MEDS: POTASSIUM Cl (KCl) 100 ML IV SCH (22:48)
[2018-09-30] MEDS: POTASSIUM Cl (KCl) 100 ML IV SCH (01:09)
[2018-09-30] MEDS: LR 1,000 ML IV SCH ×3 (02:47→18:08)
[2018-09-30] MEDS: HYDROmorphONE/DILAUDID 1 MG/ML INJ IVP PRN ×2 (05:18→08:27)
[2018-09-30] MEDS: LORazepam 2 MG/ML INJ IVP PRN ×3 (06:54→13:20)
[2018-09-30] MEDS: PANTOPRAZOLE SODIUM 40 MG VIAL IVP SCH ×2 (08:28→20:33)
[2018-09-30] MEDS: NICOTINE 21 MG/24 HR PATCH TD SCH (08:32)
[2018-09-30] MEDS: THIAMINE HCL 100 MG TAB PO SCH (08:32)
[2018-09-30] MEDS ORDERED: HYDROmorphONE/DILAUDID 1 MG/ML INJ IVP ONE (09:57)
[2018-09-30] MEDS ORDERED: NALOXONE HCL 0.4 MG/ML INJ IVP PRN (10:20)
--- NOTE | 2018-09-30 10:20 | HOSPPROG ---
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 denies surreptitious eating or alcohol Objective: Vital Signs Temp Pulse Resp BP Pulse Ox 36.8 C 68 20 144/89 H 92 09/30/18 08:00 09/30/18 08:33 09/30/18 08:00 09/30/18 08:00 09/30/18 08:00 Laboratory Results 09/27/18 05:02 09/30/18 05:05 09/29/18 09/30/18 10/01/18 05:59 05:59 05:59 Intake Total 1000 2829 Output Total 1425 4000 800 Balance -425 -1171 -800 PT 13.6 SEC (12.0-15.0) 09/27/18 05:02 INR 1.08 (0.83-1.16) 09/27/18 05:02 - Physical Exam Constitutional: no apparent distress, appears nourished Eyes: PERRL, anicteric sclera Ears, Nose, Mouth, Throat: moist mucous membranes, hearing normal Cardiovascular: regular rate and rhythym, no murmur, rub, or gallop Respiratory: no respiratory distress, no rales or rhonchi Gastrointestinal: normoactive bowel sounds, other (tender but no rebound) Genitourinary: no bladder fullness, No rios in urethra Skin: warm, normal color Musculoskeletal: full muscle strength, no muscle tenderness Neurologic: AAOx3 Psychiatric: interacting appropriately Lymph, Heme, Immunologic: no cervical LAD ICD10 Worksheet Patient Problems: Problems Problem Status Onset Alcohol intoxication Acute Pancreatitis Acute Alcohol withdrawal Acute Hematemesis Acute Nausea & vomiting Acute
[2018-09-30] MEDS: HYDROmorphONE/DILAUDID 6 MG/30 ML PCA IV PRN ×2 (11:02→20:14)
[2018-09-30 11:10] LABS: PLATELET COUNT 410 10^3/uL (150-400)
[2018-09-30] MEDS ORDERED: morphINE PCA 30 MG/30 ML PCA IV PRN (20:55)
[2018-10-01] MEDS: LR 1,000 ML IV SCH ×2 (03:07→11:06)
[2018-10-01 05:25] LABS: INR 1.11 (0.83-1.16); PROTIME(PATIENT) 13.9 SEC (12.0-15.0)
[2018-10-01] MEDS: PANTOPRAZOLE SODIUM 40 MG VIAL IVP SCH ×2 (08:18→21:51)
[2018-10-01] MEDS: THIAMINE HCL 100 MG TAB PO SCH (08:18)
[2018-10-01] MEDS: NICOTINE 21 MG/24 HR PATCH TD SCH (08:18)
--- NOTE | 2018-10-01 10:45 | ASMTCMCOM ---
CM Note CM Note Notes: Pts case discussed with BRITANY Downey. Pt does not have any d/c needs. CM available for changes. Plan: Independent Date Signed: 10/01/2018 10:45 AM Electronically Signed By:JUSTINE Strauss
--- NOTE | 2018-10-01 12:28 | HOSPPROG ---
Hospitalist Progress Note Assessment/Plan: 43 yo M w alcoholic pancreatitis, alcohol withdrawal, UGIB UGIB: appears to have stopped esophagitis and gastropathy sen on scope repeat cbc in AM path pending pancreatitis: trial of clears po pain meds alcohol withdrawal: resolved dc ciwa proph: add lmwh dispo: inpt Subjective: still w pain. hungry Objective: Vital Signs Temp Pulse Resp BP Pulse Ox 37.0 C 70 16 140/87 H 94 10/01/18 11:42 10/01/18 11:42 10/01/18 11:42 10/01/18 11:42 10/01/18 11:42 Laboratory Results 09/30/18 10:50 10/01/18 05:01 09/30/18 10/01/18 10/02/18 05:59 05:59 05:59 Intake Total 2829 4442 Output Total 4000 4825 1250 Balance -1171 -383 -1250 PT 13.9 SEC (12.0-15.0) 10/01/18 05:01 INR 1.11 (0.83-1.16) 10/01/18 05:01 - Physical Exam Constitutional: no apparent distress, appears nourished Eyes: PERRL, anicteric sclera Ears, Nose, Mouth, Throat: moist mucous membranes, hearing normal Cardiovascular: regular rate and rhythym, no murmur, rub, or gallop Respiratory: no respiratory distress, no rales or rhonchi Gastrointestinal: normoactive bowel sounds, soft, non-tender abdomen Genitourinary: no bladder fullness, No rios in urethra Skin: warm, other (L thigh w decreased redness) Musculoskeletal: full muscle strength Neurologic: AAOx3 ICD10 Worksheet Patient Problems: Problems Problem Status Onset Alcohol intoxication Acute Pancreatitis Acute Alcohol withdrawal Acute Hematemesis Acute Nausea & vomiting Acute
[2018-10-01] MEDS: ONDANSETRON 4 MG/2 ML VIAL IVP PRN (13:44)
[2018-10-01] MEDS: oxyCODONE IR 5 MG TAB PO PRN ×3 (14:07→21:57)
[2018-10-02] MEDS: oxyCODONE IR 5 MG TAB PO PRN ×2 (09:07→13:02)
[2018-10-02] MEDS: PANTOPRAZOLE SODIUM 40 MG VIAL IVP SCH ×2 (09:07→20:08)
[2018-10-02] MEDS: THIAMINE HCL 100 MG TAB PO SCH (09:07)
[2018-10-02] MEDS: NICOTINE 21 MG/24 HR PATCH TD SCH (09:07)
--- NOTE | 2018-10-02 09:54 | HOSPPROG ---
Hospitalist Progress Note Assessment/Plan: 43 yo M w alcoholic pancreatitis, alcohol withdrawal, UGIB UGIB: appears to have stopped esophagitis and gastropathy sen on scope repeat cbc in AM path pending pancreatitis: trial of clears not successful se below po pain meds abd pain: had pain and vomiting after eating, but not tachy and normal bowel sounds wonder if pain isn't from gastritis trial of viscous lidocaine and sucralfate and repeat po challenge if unsuccessful, will return to NPO, IVF, IV pain meds as pain likely from ongoing pancreatitis alcohol withdrawal: resolved dc ciwa proph: add lmwh dispo: inpt Subjective: vomited after po challenge yesterday. has just been drinking water since Objective: Vital Signs Temp Pulse Resp BP Pulse Ox 36.5 C 76 18 101/65 91 L 10/02/18 08:00 10/02/18 08:00 10/02/18 08:00 10/02/18 08:00 10/02/18 08:00 Laboratory Results 09/30/18 10:50 10/01/18 05:01 10/01/18 10/02/18 10/03/18 05:59 05:59 05:59 Intake Total 4442 840 Output Total 4825 2250 Balance -383 -1410 PT 13.9 SEC (12.0-15.0) 10/01/18 05:01 INR 1.11 (0.83-1.16) 10/01/18 05:01 - Physical Exam Constitutional: no apparent distress, appears nourished Eyes: PERRL, anicteric sclera Ears, Nose, Mouth, Throat: moist mucous membranes, hearing normal Cardiovascular: regular rate and rhythym, no murmur, rub, or gallop, No tachycardia Respiratory: no respiratory distress, no rales or rhonchi Gastrointestinal: normoactive bowel sounds, soft, non-tender abdomen Genitourinary: no bladder fullness, No rios in urethra Skin: warm Musculoskeletal: full muscle strength Neurologic: AAOx3 ICD10 Worksheet Patient Problems: Problems Problem Status Onset Alcohol intoxication Acute Pancreatitis Acute Alcohol withdrawal Acute Hematemesis Acute Nausea & vomiting Acute
[2018-10-02] MEDS ORDERED: NS 1,000 ML IV SCH (10:00)
[2018-10-02] MEDS: LIDOCAINE 2% VISCOUS 15 ML UDCUP PO SCH ×2 (10:18→11:28)
[2018-10-02] MEDS: SUCRALFATE 1 GM TAB PO SCH ×2 (11:27→18:10)
[2018-10-02] MEDS ORDERED: NALOXONE HCL 0.4 MG/ML INJ IVP PRN (15:42)
[2018-10-02] MEDS ORDERED: morphINE PCA 30 MG/30 ML PCA IV PRN (15:42)
[2018-10-02] MEDS: NS 1,000 ML IV SCH (16:45)
[2018-10-03] MEDS: NS 1,000 ML IV SCH (00:39)
[2018-10-03] MEDS: THIAMINE HCL 100 MG TAB PO SCH (08:59)
[2018-10-03] MEDS: PANTOPRAZOLE SODIUM 40 MG VIAL IVP SCH ×2 (08:59→20:59)
[2018-10-03] MEDS: NICOTINE 21 MG/24 HR PATCH TD SCH (08:59)
--- NOTE | 2018-10-03 10:52 | HOSPPROG ---
Hospitalist Progress Note Assessment/Plan: 43 yo M w alcoholic pancreatitis, alcohol withdrawal, UGIB UGIB: has stopped esophagitis and gastropathy sen on scope repeat cbc in AM path pending pancreatitis: now hungry will advance diet this afternoon if remains hungry alcohol withdrawal: resolved dc sara proph: add lmwh dispo: inpt Subjective: difficult night w pain but much better, even hyngry, this AM Objective: Vital Signs Temp Pulse Resp BP Pulse Ox 37.0 C 67 16 112/82 H 94 10/03/18 10:13 10/03/18 10:13 10/03/18 10:13 10/03/18 10:13 10/03/18 10:13 Laboratory Results 09/30/18 10:50 10/01/18 05:01 10/02/18 10/03/18 10/04/18 05:59 05:59 05:59 Intake Total 840 240 Output Total 2250 1450 400 Balance -1410 -1210 -400 PT 13.9 SEC (12.0-15.0) 10/01/18 05:01 INR 1.11 (0.83-1.16) 10/01/18 05:01 - Physical Exam Constitutional: no apparent distress, appears nourished Eyes: PERRL, anicteric sclera Ears, Nose, Mouth, Throat: moist mucous membranes, hearing normal Cardiovascular: regular rate and rhythym, no murmur, rub, or gallop, No tachycardia Respiratory: no respiratory distress, no rales or rhonchi Gastrointestinal: normoactive bowel sounds, soft, non-tender abdomen, No guarding, No rebound Genitourinary: no bladder fullness, No rios in urethra Skin: warm, normal color Musculoskeletal: full muscle strength Neurologic: AAOx3, sensation intact bilaterally ICD10 Worksheet Patient Problems: Problems Problem Status Onset Alcohol intoxication Acute Pancreatitis Acute Alcohol withdrawal Acute Hematemesis Acute Nausea & vomiting Acute
[2018-10-03] MEDS: oxyCODONE IR 5 MG TAB PO PRN ×2 (19:26→23:36)
[2018-10-04] MEDS: NS 1,000 ML IV SCH (01:59)
[2018-10-04 08:05] VITALS: BP 132/69
[2018-10-04] MEDS: PANTOPRAZOLE SODIUM 40 MG VIAL IVP SCH (08:15)
[2018-10-04] MEDS: THIAMINE HCL 100 MG TAB PO SCH (08:17)
[2018-10-04] MEDS: NICOTINE 21 MG/24 HR PATCH TD SCH (08:18)
[2018-10-04] MEDS: oxyCODONE IR 5 MG TAB PO PRN (08:27)
[2018-10-04] MEDS ORDERED: POLYETHYLENE GLYCOL 3350 17 GM PKT PO ONE (09:32)
--- NOTE | 2018-10-04 09:36 | HOSPPROG ---
Hospitalist Progress Note Assessment/Plan: 43 yo M w alcoholic pancreatitis, alcohol withdrawal, UGIB UGIB: has stopped esophagitis and gastropathy sen on scope repeat cbc in AM path pending pancreatitis: did well w advanced diet alcohol withdrawal: resolved dc ciwa proph: add lmwh dispo: home today > 30 minutes Subjective: feels well and tolerating po's. ready for dc Objective: Vital Signs Temp Pulse Resp BP Pulse Ox 36.7 C 59 L 16 132/69 H 94 10/04/18 08:04 10/04/18 08:04 10/04/18 08:04 10/04/18 08:04 10/04/18 08:04 Laboratory Results 09/30/18 10:50 10/01/18 05:01 10/03/18 10/04/18 10/05/18 05:59 05:59 05:59 Intake Total 240 2000 Output Total 1450 1000 400 Balance -1210 1000 -400 PT 13.9 SEC (12.0-15.0) 10/01/18 05:01 INR 1.11 (0.83-1.16) 10/01/18 05:01 - Physical Exam Constitutional: no apparent distress, appears nourished Eyes: PERRL, anicteric sclera Ears, Nose, Mouth, Throat: moist mucous membranes, hearing normal Cardiovascular: regular rate and rhythym, no murmur, rub, or gallop Respiratory: no respiratory distress, no rales or rhonchi Gastrointestinal: normoactive bowel sounds, soft, non-tender abdomen Genitourinary: no bladder fullness, No rios in urethra Skin: warm, normal color Musculoskeletal: full muscle strength Neurologic: AAOx3 ICD10 Worksheet Patient Problems: Problems Problem Status Onset Alcohol intoxication Acute Pancreatitis Acute Alcohol withdrawal Acute Hematemesis Acute Nausea & vomiting Acute
--- NOTE | 2018-10-04 10:04 | GDS ---
[f rep st] DISCHARGE SUMMARY DISCHARGE DIAGNOSES: 1. Upper gastrointestinal bleed secondary to reflux esophagitis and portal hypertensive gastropathy. He did not require transfusion. 2. Mild alcohol withdrawal. 3. Pancreatitis secondary to alcohol. Please see admission history and physical by Dr. Smitha Harrington . The patient presented to the hospital after walking from [place] to [place]. He was intoxicated, h ad abdominal pain and hematemesis. The patient did well in the hospital with really only about 24-36 hours of alcohol withdrawal. His p ancreatitis was slow to resolve requiring a trial of clears that failed with transition back to n.p.o . for an additional 30 hours followed by tolerance of p.o. intake. He does not have evidence of furt her bleeding. The patient is motivated to quit alcohol. He is discharged home with prescriptions for Protonix, but otherwise no prescriptions. Greater than 30 minutes spent on this discharge. /[id number]/MODL
--- NOTE | 2018-10-04 10:25 | ASMTLACE ---
[facility] Length of stay for Answers: 7-13 days current admission Comorbidities - select Answers: Opioid dependence all that apply / Chronic pain # of Emergency department Answers: 1-2 visits in the last 6 months Social determinants Answers: History of substance abuse (ETOH, street drugs, prescription drugs, etc.) Score: 13 Date Signed: 10/04/2018 10:24 AM Electronically Signed By:Maxine Bliss
--- NOTE | 2018-10-04 10:28 | ASMTCMCOM ---
CM Note CM Note Notes: Met with Pt and provided him with a bus pass to get to [place]. RN aware and Pt ready for discharge home. No other needs at this time. PLAN: Home Independently Date Signed: 10/04/2018 10:28 AM Electronically Signed By:Maxine Bliss
== END 2018-10-04 10:59 | disposition home or self-care (01) | DRG 282 ==
LOC: OBSVTOIN 09-27 01:39 → F3E 09-27 02:27
PROVIDERS: ADMIT Family Medicine; ATTEND Internal Medicine
DX: K85.20 Alcohol induced acute pancreatitis without necrosis or infection (principal); E87.2 Acidosis; K92.2 Gastrointestinal hemorrhage, unspecified; L03.116 Cellulitis of left lower limb; K31.89 Other diseases of stomach and duodenum; K21.0 Gastro-esophageal reflux disease with esophagitis; F10.239 Alcohol dependence with withdrawal, unspecified
CPT/HCPCS: 96374; 97116-GP; 97161-GP; G0480; J0690; J1170; J1650; J2001; J2060; J2250; J2270; J2405; J2550; J2704; J3010; J3360; J3411; J3480

== ENCOUNTER 2018-10-05 21:33 | Emergency (ER) | payer MEDICAID ==
[2018-10-05] MEDS ORDERED: NS 1,000 ML IV ONE (22:04)
[2018-10-05] MEDS ORDERED: ONDANSETRON 4 MG/2 ML VIAL IVP ONE (22:04)
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
[2018-10-05 22:14] LABS: PLATELET COUNT 426 10^3/uL (150-400)
[2018-10-05] MEDS ORDERED: PANTOPRAZOLE SODIUM 40 MG TAB PO ONE (23:50)
[2018-10-06] MEDS ORDERED: CHLORDIAZEPOXIDE 25MG PREPK#6 BTL TAKEHOME ONE ×2 (00:13→00:15)
[2018-10-06 00:39] VITALS: BP 132/71
== END 2018-10-06 00:25 | disposition home or self-care (01) ==
LOC: EEVIPCON 21:33
DX: K29.20 Alcoholic gastritis without bleeding (principal); E86.9 Volume depletion, unspecified
CPT/HCPCS: 96374; J2405

== ENCOUNTER 2018-10-10 21:37 | Emergency (ER) | payer MEDICAID ==
[2018-10-10] MEDS ORDERED: LIDOCAINE 2% VISCOUS 15 ML UDCUP PO ONE (22:02)
[2018-10-10] MEDS ORDERED: MAG HYDROX/AL HYDROX/SIMETH 30 ML UDCUP PO ONE (22:02)
[2018-10-10] MEDS ORDERED: ONDANSETRON DISINTEGRATING 4 MG TAB PO ONE (22:03)
--- NOTE | 2018-10-10 22:11 | EDPHY ---
H & P Stated Complaint: poancreatitis aggravation Time Seen by Provider: 10/10/18 21:49 HPI/ROS: Chief Complaint: Abdominal pain HPI: 43-year-old homeless male with a history of chronic alcohol abuse, homeless, pancreatitis and alcoholic gastritis. Patient was admitted earlier this month for an exacerbation of alcoholic pancreatitis. He had a number endoscopy at that time which showed gastritis and office off a GI this. No varices. Patient was seen shortly after discharge, 4 days ago, had a normal lipase at that time. Patient had not been compliant with medications in resume drinking. Patient is presenting tonight complaining of persistent upper abdominal pain. Patient states that he has been vomiting some blood. Pain is exactly like his prior gastritis and pancreatitis pain. He is continuing to drink alcohol and admits to drinking just prior to present to the emergency department. He states that he is taking the Protonix as prescribed. No fevers or chills. No dark tarry stools. No chest pain or shortness of breath. No fainting. Pain is currently 6/10. ROS: 10 systems were reviewed and were negative except those elements noted in the HPI. PMH: Chronic alcohol abuse, alcoholic pancreatitis, gastritis and esophagitis. Social History: No smoking, daily heavy alcohol, currently homeless Family History: non-contributory Physical Exam: Gen: Awake, Alert, No Distress HEENT: Nose: no rhinorrhea Eyes: PERRLA, EOMI Mouth: Moist mucosa Neck: Supple, no JVD Chest: nontender, lungs clear to auscultation Heart: S1, S2 normal, no murmur Abd: Soft, minimal upper abdominal tenderness, no guarding Back: no CVA tenderness, no midline tenderness Ext: no edema, non-tender Skin: no rash Neuro: CN II-XII intact, Sensation grossly intact, Strength 5/5 in bilateral upper and lower extremities - Personal History Current Tetanus/Diphtheria Vaccine: Yes Current Tetanus Diphtheria and Acellular Pertussis (TDAP): Yes - Medical/Surgical History Hx Asthma: No Hx Chronic Respiratory Disease: No Hx Diabetes: No Hx Cardiac Disease: No Hx Renal Disease: No Hx Cirrhosis: No Hx Alcoholism: Yes Hx HIV/AIDS: No Hx Splenectomy or Spleen Trauma: No Other PMH: etoh/gi bleed, CHRONIC BACK PAIN, pancratitis - Social History Smoking Status: Heavy smoker Constitutional: Initial Vital Signs Temperature (C) 36.6 C 10/10/18 21:47 Heart Rate 95 10/10/18 21:47 Respiratory Rate 18 10/10/18 21:47 Blood Pressure 127/78 H 10/10/18 21:47 O2 Sat (%) 95 10/10/18 21:47 O2 Delivery Mode Room Air Allergies/Adverse Reactions: No Known Allergies Allergy (Verified 10/05/18 21:38) Home Medications: Medication Instructions Recorded traMADol [Ultram 50 mg (*)] 50 mg PO Q4 PRN 09/01/18 Gabapentin [Neurontin 100 MG (*)] 100 mg PO TID 09/27/18 Nicotine [Nicoderm Cq 21 mg (*)] 21 mg TD DAILY 09/27/18 Amoxicillin Trihydrate 1,000 mg PO Q12H #56 cap 10/04/18 [Amoxicillin] Clarithromycin [Biaxin (*)] 500 mg PO BID #28 tab 10/04/18 Nicotine [Nicoderm Cq 21 mg (*)] 21 mg TD DAILY patch 10/04/18 Pantoprazole Sodium [Protonix 40mg 40 mg PO DAILY #30 tab 10/04/18 (*)] Polyethylene Glycol 3350 [Miralax 17 gm PO ONCE pkt 10/04/18 17 gm (*)] Medical Decision Making ED Course/Re-evaluation: 43-year-old male presenting with epigastric pain consistent with alcoholic gastritis and possible pancreatitis. Patient was seen here 4 days ago had a normal lipase at that time. His abdomen is soft and benign. He is continuing to drink alcohol heavily daily. He is intoxicated in the emergency department. Will give him a GI cocktail and reassess. Patient is sleeping. Abdomen is soft and benign. Plan will be to [facility] to [facility] with Librium prepack, instructions follow up with primary care physician. There is no evidence of acute intra-abdominal process at this time. Abdomen is soft and benign. - Data Points Medications Given: Discontinued Medications Al Hydroxide/Mg Hydroxide (Maalox Susp) 30 ml PO ONCE ONE Stop: 10/10/18 22:03 Last Admin: 10/10/18 22:21 Dose: 30 ml Lidocaine (Lidocaine 2% Viscous) 15 ml PO ONCE ONE Stop: 10/10/18 22:03 Last Admin: 10/10/18 22:21 Dose: 15 ml Ondansetron HCl (Zofran Odt) 4 mg PO EDNOW ONE Stop: 10/10/18 22:04 Last Admin: 10/10/18 22:21 Dose: 4 mg Departure - Departure Disposition: Home, Routine, Self-Care Clinical Impression: Alcohol intoxication, Alcoholic gastritis Condition: Good Instructions: Gastritis (ED), Alcohol Intoxication (ED), Abuse of Alcohol (ED) , Chlordiazepoxide (By mouth) Additional Instructions: Continue taking her Protonix as prescribed. Follow up with [facility] in 2-3 days for further evaluation. Referrals: [facility],. [Clinic] - As per Instructions
[2018-10-10] MEDS ORDERED: CHLORDIAZEPOXIDE 25MG PREPK#6 BTL TAKEHOME ONE (22:41)
[2018-10-10 22:50] VITALS: BP 109/69
== END 2018-10-10 22:57 | disposition home or self-care (01) ==
DX: K29.20 Alcoholic gastritis without bleeding (principal); F10.10 Alcohol abuse, uncomplicated; Z79.899 Other long term (current) drug therapy; Z59.0 Homelessness

== ENCOUNTER 2018-10-25 21:25 | Emergency (ER) | payer MEDICAID ==
--- NOTE | 2018-10-25 21:40 | EDPHY ---
H & P Stated Complaint: RUQ abd stabbing pain Time Seen by Provider: 10/25/18 21:34 HPI/ROS: HPI: This is a 43-year-old male who presents with Chief Complaint: Epigastric and right upper quadrant pain Location: Epigastric right upper quadrant Quality: Sharp, burning pain Duration: 1 hr prior to arrival Signs and Symptoms: no fever, no nausea, no vomiting, no hematemesis, no blood in stool, no abdominal bloating, no diarrhea, no back pain, no urinary symptoms , no testicular/groin pain, no indigestion, no chest pain, no shortness of breath Timing: Acute on chronic Severity: Moderate Context: Patient is homeless, has a history of alcohol abuse and pancreatitis presents with 1 hr history of epigastric and right upper quadrant sharp burning pain. He reports that he drank vodka today and last ingestion was 2 hr prior to arrival. He denies any fever, blood in stool, hematemesis, urinary symptoms , back pain. He has tried nothing for the symptoms. Patient had 3 ER visits for the same complaints in September. Last admission was October 04, 2018 for upper GI bleed, alcoholic pancreatitis, portal hypertensive gastropathy. Modifying Factors: None Comment: ROS: A comprehensive 10 system review of systems is otherwise negative aside from elements mentioned in the history of present illness. MEDICAL/SURGICAL/SOCIAL HISTORY: Medical history: etoh/gi bleed, CHRONIC BACK PAIN, pancreatitis Surgical history: Denies Social history: Homeless. Alcohol and tobacco abuse. Family history noncontributory. CONSTITUTIONAL: Intoxicated middle-aged white male, awake and alert, no obvious distress HEENT: Atraumatic and normocephalic, PERRL, EOMI. Nares patent; no rhinorrhea; no nasal mucosal edema. Tympanic membranes clear. Oropharynx clear, no exudate and moist pink mucosa. Airway patent. No lymphadenopathy. No meningismus. Cardiovascular: Normal S1/S2, regular rate, regular rhythm, without murmur rub or gallop. PULMONARY/CHEST: Symmetrical and nontender. Clear to auscultation bilaterally. Good air movement. No accessory muscle usage. ABDOMEN: Soft, nondistended, moderate epigastric tenderness, mild right upper quadrant tenderness, negative Rice sign, no rebound, no guarding, no peritoneal signs, no masses or organomegaly. No CVAT. EXTREMITIES: 2/2 pulses, strength 5/5, no deformities, no clubbing, no cyanosis or edema. NEUROLOGICAL: no focal neuro deficits. GCS 15. SKIN: Warm and dry, no erythema. no rash. Good capillary refill. Source: Patient Exam Limitations: No limitations - Personal History Current Tetanus/Diphtheria Vaccine: Yes Current Tetanus Diphtheria and Acellular Pertussis (TDAP): Yes - Medical/Surgical History Hx Asthma: No Hx Chronic Respiratory Disease: No Hx Diabetes: No Hx Cardiac Disease: No Hx Renal Disease: No Hx Cirrhosis: No Hx Alcoholism: Yes Hx HIV/AIDS: No Hx Splenectomy or Spleen Trauma: No Other PMH: etoh/gi bleed, CHRONIC BACK PAIN, pancratitis - Social History Smoking Status: Heavy smoker Constitutional: Initial Vital Signs Temperature (C) 36.5 C 10/25/18 21:28 Heart Rate 103 H 10/25/18 21:28 Respiratory Rate 16 10/25/18 21:28 Blood Pressure 120/73 10/25/18 21:28 O2 Sat (%) 96 10/25/18 21:28 O2 Delivery Mode Room Air Allergies/Adverse Reactions: No Known Allergies Allergy (Verified 10/25/18 21:30) Home Medications: Medication Instructions Recorded Pantoprazole Sodium [Protonix 40mg 40 mg PO DAILY #30 tab 10/25/18 (*)] Medical Decision Making ED Course/Re-evaluation: Vital signs reviewed and show mild tachycardia. Placed on court recording monitor. IV access, laboratory studies ordered Given 2 L normal saline, IV GI cocktail, IV promethazine 12.5 mg, IV Protonix 80 mg 2225: Laboratory studies reviewed. No coagulopathy, no elevated liver enzymes , no electrolyte imbalance, no acute kidney injury, no alcoholic acidosis. ETOH =289. No signs of alcohol withdrawal seizures, alcohol delirium tremens 2235: Reassessed patient who is sleeping soundly. Charge called the [facility] and patient is eligible to be discharged to their facility with Librium prepack. Cab called to transport patient. I did give patient a prescription for Protonix. 0010: Reassessed patient who is sleeping soundly. He will be discharged to the [facility] when he is able to ambulate without assistance. This patient was seen under the supervision of my secondary supervising physician. I evaluated and cared for this patient with attending. Differential Diagnosis: Abdominal pain including but not limited to appendicitis, cholecystitis, gastritis and urinary tract infection. - Data Points Laboratory Results: Laboratory Results 10/25/18 21:55 10/25/18 10/25/18 21:55 21:55 PT 12.0 SEC SEC (12.0-15.0) INR 0.92 (0.83-1.16) APTT 26.4 SEC SEC (23.0-38.0) Sodium 141 mEq/L mEq/L (135-145) Potassium 4.1 mEq/L mEq/L (3.5-5.2) Chloride 109 mEq/L mEq/L (97-110) Carbon Dioxide 19 mEq/l L mEq/l (22-31) Anion Gap 13 mEq/L mEq/L (6-14) BUN 11 mg/dL mg/dL (7-23) Creatinine 0.9 mg/dL mg/dL (0.7-1.3) Estimated GFR > 60 Glucose 113 mg/dL H mg/dL (70-100) Calcium 9.3 mg/dL mg/dL (8.5-10.4) Total Bilirubin 0.2 mg/dL mg/dL (0.1-1.4) Conjugated Bilirubin 0.2 mg/dL mg/dL (0.0-0.5) Unconjugated Bilirubin 0.0 mg/dL mg/dL (0.0-1.1) AST 24 IU/L IU/L (17-59) ALT 23 IU/L IU/L (21-72) Alkaline Phosphatase 45 IU/L IU/L (38-126) Total Protein 6.5 g/dL g/dL (6.3-8.2) Albumin 4.3 g/dL g/dL (3.5-5.0) Lipase 218 IU/L IU/L (23-300) Ethyl Alcohol 289 mg/dL H mg/dL (0-10) Medications Given: Discontinued Medications Sodium Chloride (Ns) 1,000 mls @ 0 mls/hr IV EDNOW ONE; Wide Open PRN Reason: Protocol Stop: 10/25/18 21:42 Last Admin: 10/25/18 21:49 Dose: 1,000 mls Sodium Chloride (Ns) 1,000 mls @ 0 mls/hr IV EDNOW ONE; Wide Open PRN Reason: Protocol Stop: 10/25/18 21:42 Last Admin: 10/25/18 21:50 Dose: 1,000 mls Pantoprazole Sodium (Protonix) 80 mg IVP EDNOW ONE Stop: 10/25/18 21:42 Last Admin: 10/25/18 21:50 Dose: 80 mg Promethazine HCl (Phenergan) 12.5 mg IVP EDNOW ONE Stop: 10/25/18 21:42 Last Admin: 10/25/18 21:54 Dose: 12.5 mg Departure - Departure Disposition: Home, Routine, Self-Care Clinical Impression: Alcoholic intoxication without complication, Chronic pancreatitis due to acute alcohol intoxication Condition: Good Instructions: Chlordiazepoxide (By mouth), Pancreatitis (ED), Alcohol Intoxication (ED), Abuse of Alcohol (ED) Additional Instructions: Consume a minimum of 8-10 glasses of water or electrolyte fluid replacement drinks that include Gatorade, Powerade, Pedialyte. Eat a bland diet for the next 48 hours and then slowly advance as tolerated. Take Protonix every morning. Referrals: [facility] [Outside] - As per Instructions [facility],. [Clinic] - As per Instructions Prescriptions: Pantoprazole Sodium [Protonix 40mg (*)] 40 mg PO DAILY #30 tab
[2018-10-25] MEDS ORDERED: NS 1,000 ML IV ONE ×2 (21:41)
[2018-10-25] MEDS ORDERED: PROMETHAZINE HCL 25 MG/ML INJ IVP ONE (21:41)
[2018-10-25] MEDS ORDERED: PANTOPRAZOLE SODIUM 40 MG VIAL IVP ONE (21:41)
[2018-10-25 22:17] LABS: INR 0.92 (0.83-1.16)
[2018-10-25] MEDS ORDERED: CHLORDIAZEPOXIDE 25MG PREPK#6 BTL TAKEHOME ONE (22:29)
[2018-10-26] MEDS ORDERED: CHLORDIAZEPOXIDE 25MG PREPK#6 BTL TAKEHOME ONE (00:46)
[2018-10-26 00:51] VITALS: BP 118/70
== END 2018-10-26 00:50 | disposition home or self-care (01) ==
DX: F10.920 Alcohol use, unspecified with intoxication, uncomplicated (principal); K86.0 Alcohol-induced chronic pancreatitis; E86.9 Volume depletion, unspecified; Z59.0 Homelessness
CPT/HCPCS: 96374; G0480; J2550

== ENCOUNTER 2018-11-21 22:00 | Emergency (ER) | payer MEDICAID ==
[2018-11-21 22:04] VITALS: BP 146/84
[2018-11-21] MEDS ORDERED: CHLORDIAZEPOXIDE 25MG PREPK#6 BTL TAKEHOME ONE (22:07)
--- NOTE | 2018-11-21 22:07 | EDPHY ---
HPI/HX/ROS/PE/MDM Narrative: CHIEF COMPLAINT: Requesting alcohol detox HPI: The patient is a 43-year-old male with a history of alcoholism and frequent ED visits related to the same. He arrives tonight to the ED requesting transfer [facility] to get help with his drinking. He states his last drink was approximately 15 min ago. He also states that his friends dosed him yesterday against as well with LFT. The patient denies significant vomiting. REVIEW OF SYSTEMS: Aside from elements discussed in the HPI, a comprehensive 10-point review of systems was reviewed and is negative. PMH: Includes severe chronic alcoholism. SOCIAL HISTORY: Ongoing alcohol abuse, last just prior to arrival. PHYSICAL EXAM: General: Patient is appears severely intoxicated. Smells of alcohol. ENT: Eyes are normal to inspection. ENT inspection normal. Pupils are mid position and reactive bilaterally. Neck: Normal inspection. Full range of motion. Respiratory: No respiratory distress. Breath sounds normal bilaterally. Cardiovascular: Regular rate and rhythm. Normal heart sounds. Neuro: No focal motor or sensory deficits. MDM: This patient requests transfer to the [facility]. I see no signs of acute abdomen or severe metabolic abnormality. I think he is safe for transfer with the Librium prepack. - Data Points Medications Given: Discontinued Medications Chlordiazepoxide (Librium 25 Mg Prepack#6) 1 btl TAKEHOME EDNOW ONE Stop: 11/21/18 22:08 Last Admin: 11/21/18 22:13 Dose: 1 btl Ondansetron HCl (Zofran Odt) 4 mg PO EDNOW ONE Stop: 11/21/18 22:10 Last Admin: 11/21/18 22:12 Dose: 4 mg General Time Seen by Provider: 11/21/18 22:05 Initial Vital Signs: Initial Vital Signs Temperature (C) 36.6 C 11/21/18 22:02 Heart Rate 97 11/21/18 22:02 Respiratory Rate 18 11/21/18 22:02 Blood Pressure 146/84 H 11/21/18 22:02 O2 Sat (%) 98 11/21/18 22:02 O2 Delivery Mode Room Air Allergies/Adverse Reactions: No Known Allergies Allergy (Verified 11/21/18 22:02) Home Medications: Medication Instructions Recorded Pantoprazole Sodium [Protonix 40mg 40 mg PO DAILY #30 tab 10/25/18 (*)] Departure - Departure Disposition: Home, Routine, Self-Care Clinical Impression: Alcohol dependence Condition: Good Instructions: Abuse of Alcohol (ED) Additional Instructions: Go directly to the [facility]. Referrals: NONE *PRIMARY CARE P,. [Primary Care Provider] - As per Instructions
[2018-11-21] MEDS ORDERED: ONDANSETRON DISINTEGRATING 4 MG TAB PO ONE (22:09)
== END 2018-11-21 22:33 | disposition home or self-care (01) ==
DX: F10.20 Alcohol dependence, uncomplicated (principal)

== ENCOUNTER 2018-12-02 21:04 | Emergency (ER) | payer MEDICAID | END 2018-12-03 01:29 | disposition home or self-care (01) ==

== ENCOUNTER 2018-12-11 12:34 | Emergency (ER) | payer MEDICAID | END 2018-12-11 17:01 | disposition home or self-care (01) ==